=== PATIENT | male | born 1940 | race Caucasian/White ===

== ENCOUNTER 2017-11-30 08:21 | Day surgery (SDC) | payer MEDICARE ==
[2017-11-29 12:37] VITALS: BMI 31.1
[2017-11-30 08:55] LABS: PTT 34.6 SEC (22.9-36.1); Prothrombin Time 13.7 SEC (12.0-14.7)
== END 2017-11-30 10:00 | disposition home or self-care (01) ==
LOC: CT 08:21
PROVIDERS: ATTEND Internal Medicine Nephrology
DX: N18.3 Chronic kidney disease, stage 3 (moderate) (principal); T39.395A Adverse effect of other nonsteroidal anti-inflammatory drugs [NSAID], initial encounter; D63.1 Anemia in chronic kidney disease; N25.81 Secondary hyperparathyroidism of renal origin; G89.29 Other chronic pain; M54.9 Dorsalgia, unspecified; E78.5 Hyperlipidemia, unspecified; G47.33 Obstructive sleep apnea (adult) (pediatric); M19.90 Unspecified osteoarthritis, unspecified site; I10 Essential (primary) hypertension; F32.9 Major depressive disorder, single episode, unspecified; E66.9 Obesity, unspecified; Z68.31 Body mass index [BMI] 31.0-31.9, adult; Z79.82 Long term (current) use of aspirin; Z79.899 Other long term (current) drug therapy; Z88.2 Allergy status to sulfonamides; Z53.9 Procedure and treatment not carried out, unspecified reason
CPT/HCPCS: 36415; 85610; 85730

== ENCOUNTER 2018-01-04 14:41 | Inpatient (IN) | payer MEDICARE ==
[2018-01-04 15:24] LABS: #Basophils 0.1 thou/uL (0.0-0.2); #Eosinphils 0.2 thou/uL (0.0-0.7); #Lymphocytes 1.3 thou/uL (1.20-3.40); #Monocytes 0.9 thou/uL (0.11-0.59); #Neutrophils 4.9 thou/uL (1.40-6.50); %Basophils 0.9 % (0.0-1.0); %Eosinophils 2.8 % (0.0-10.0); %Lymphocytes 18.3 % (21.0-51.0); %Monocytes 11.6 % (0.0-10.0); %Neutrophils 66.4 % (42.0-75.0); Hemoglobin 9.5 g/dL (14.0-18.0); Mean Corpuscular HGB CONC 34.7 g/dL (32.0-36.0); Mean Corpuscular Hemoglobin 32.4 pg (27.0-31.0); Mean Corpuscular Volume 93.4 fL (78.0-98.0); Mean Platelet Volume 7.5 fL (7.4-10.4); Platelet Count 233 thou/uL (130-400); RBC Distribution Width 12.3 % (11.5-14.5); Red Blood Cell (RBC) Count 2.92 mill/uL (4.70-6.10); White Blood Cell (WBC) Count 7.3 thou/uL (4.8-10.8)
[2018-01-04 15:51] LABS: ALT (SGPT) 36 U/L (8-55); AST (SGOT) 30 U/L (5-34); Albumin 4.1 g/dL (3.4-4.8); Alkaline Phosphatase 101 U/L (40-150); Anion Gap 16 mmol/L (10-20); BUN (Urea Nitrogen) 64 mg/dL (8.4-25.7); Bilirubin, Total 0.5 mg/dL (0.2-1.2); Calc. Creatinine Clearance 0 mL/min (70-130); Calcium 10.7 mg/dL (7.8-10.44); Carbon Dioxide 24 mmol/L (23-31); Chloride 97 mmol/L (98-107); Estimated GFR-MDRD 14; Glucose 97 mg/dL (83-110); Potassium 3.1 mmol/L (3.5-5.1); Protein, Total 7.1 g/dL (5.8-8.1); Sodium 134 mmol/L (136-145)
[2018-01-04] MEDS ORDERED: Potassium Chloride 20 MEQ TAB ONE (16:07)
[2018-01-04] MEDS ORDERED: Sodium Chloride 0.9% 1,000 ML IV SCH ×2 (18:23→18:30)
[2018-01-04] MEDS ORDERED: hydrALAZINE 20 MG/ML VIAL SLOW IVP PRN (18:23)
--- NOTE | 2018-01-04 19:02 | PDOC.FPRHP ---
- History of Present Illness Chief Complaint: Acute renal failure History of Present Illness: 77 yo M who presents from Dr Freeman's clinic with acute renal failure. Patient was originally sent to see nephrology about one year ago due to rising creatinine and difficult to control blood pressure. This has been monitored by nephrology since. Over the past year his creatinine has been rising quickly from 1.81 in May to 3.03 on 12/11 to 4.23 today. Pt was sent to ER to be admitted for work up. Pt denies family history of renal disease or past history of known problems. He complains of associated LE edema. He denies dysuria or hematuria. - Allergies/Adverse Reactions Allergies Allergy/AdvReac Type Severity Reaction Status Date / Time Sulfa (Sulfonamide Allergy Verified 01/04/18 19:02 Antibiotics) - Home Medications Medication Instructions Recorded Confirmed Type Aspirin [Aspirin Chewable] 81 mg PO DAILY 11/29/17 01/04/18 History Atorvastatin Calcium 40 mg PO HS 11/29/17 01/04/18 History Calcitriol 0.25 mcg PO BID 11/29/17 01/04/18 History Carvedilol 25 mg PO BID 11/29/17 01/04/18 History Furosemide 40 mg PO BID 11/29/17 01/04/18 History Ranitidine HCl 300 mg PO DAILY 11/29/17 01/04/18 History FLUoxetine HCl [Prozac] 20 mg PO DAILY 01/04/18 01/04/18 History NIFEdipine [Nifedipine ER] 60 mg PO DAILY 01/04/18 01/04/18 History hydrALAZINE [Apresoline] 25 mg PO BID 01/04/18 01/04/18 History traMADol HCl [Ultram] 50 mg PO QID 01/04/18 01/04/18 History - History PMHx: HTN HLD GERD Pancreatitis PSHx: Appendectomy Lumbar fusion L knee arthroplasty tonsillectomy FHx: NA Social: Former smoker 40+ pack year hx, occasional etoh, denies recreational drugs - Review of Systems General: denies: fever/chills, weight/appetite/sleep changes Eyes: denies: vision changes ENT: denies: nasal congestion, rhinorrhea Respiratory: denies: cough, congestion, shortness of breath Cardiovascular: reports: edema (b/l LE). denies: chest pain, palpitation Gastrointestinal: denies: nausea, vomiting, diarrhea Genitourinary: denies: incontinence, dysuria, polyuria Skin: denies: rashes, lesions Musculoskeletal: denies: pain, tenderness Neurological: denies: numbness, syncope Psychological: denies: anxiety, depression - Vital signs BP: 168/71 HR: 59 RR: 20 Tmax: 98.0 Pox: 95% on RA Wt: 90 kg - Physical Exam Constitutional: NAD, awake, alert and oriented HEENT: normocephalic and atraumatic, PERRLA, EOMI Neck: trachea midline Chest: no-tender to palpation Heart: RRR, normal S1/S2, no murmurs/rubs/gallops -Heart: 1+ pitting edema to ankle b/l Lungs: CTAB, no respiratory distress, good air movement Abdomen: soft, non-tender, bowel sounds present, no masses/distention Musculoskeletal: normal structure, normal tone Neurological: no focal deficit, CN II-XII intact Skin: no rash/lesions, good turgor Heme/Lymphatic: no unusual bruising or bleeding, no purpura, no petechia Psychiatric: normal mood and affect, good judgment and insight, intact recent and remote memory FMR H&P: Results - Labs Result Diagrams: 01/04/18 15:14 01/04/18 15:14 Lab results: WBC 7.3 thou/uL (4.8-10.8) 01/04/18 15:14 Hgb 9.5 g/dL (14.0-18.0) L 01/04/18 15:14 Hct 27.3 % (42.0-52.0) L 01/04/18 15:14 MCV 93.4 fL (78.0-98.0) 01/04/18 15:14 Plt Count 233 thou/uL (130-400) 01/04/18 15:14 Neutrophils % 66.4 % (42.0-75.0) 01/04/18 15:14 Sodium 134 mmol/L (136-145) L 01/04/18 15:14 Potassium 3.1 mmol/L (3.5-5.1) L 01/04/18 15:14 Chloride 97 mmol/L (98-107) L 01/04/18 15:14 Carbon Dioxide 24 mmol/L (23-31) 01/04/18 15:14 BUN 64 mg/dL (8.4-25.7) H 01/04/18 15:14 Creatinine 4.23 mg/dL (0.6-1.3) H 01/04/18 15:14 Glucose 97 mg/dL (83-110) 01/04/18 15:14 Calcium 10.7 mg/dL (7.8-10.44) H 01/04/18 15:14 Total Bilirubin 0.5 mg/dL (0.2-1.2) 01/04/18 15:14 AST 30 U/L (5-34) 01/04/18 15:14 ALT 36 U/L (8-55) 01/04/18 15:14 Alkaline Phosphatase 101 U/L (40-150) 01/04/18 15:14 Serum Total Protein 7.1 g/dL (5.8-8.1) 01/04/18 15:14 Albumin 4.1 g/dL (3.4-4.8) 01/04/18 15:14 FMR H&P: A/P - Problem List (1) Acute renal failure Current Visit: Yes Status: Acute Priority: High (2) GERD (gastroesophageal reflux disease) Current Visit: Yes Status: Chronic Code(s): K21.9 - GASTRO-ESOPHAGEAL REFLUX DISEASE WITHOUT ESOPHAGITIS (3) Anxiety Current Visit: Yes Status: Chronic Code(s): F41.9 - ANXIETY DISORDER, UNSPECIFIED (4) Anemia Current Visit: No Status: Chronic Code(s): D64.9 - ANEMIA, UNSPECIFIED Qualifiers: Anemia type: due to chronic kidney disease Chronic kidney disease stage: unspecified stage Qualified Code(s): N18.9 - Chronic kidney disease, unspecified; D63.1 - Anemia in chronic kidney disease (5) Hyperlipemia Current Visit: No Status: Chronic Code(s): E78.5 - HYPERLIPIDEMIA, UNSPECIFIED (6) Hypertension Current Visit: No Status: Chronic Code(s): I10 - ESSENTIAL (PRIMARY) HYPERTENSION Qualifiers: Hypertension type: unspecified Qualified Code(s): I10 - Essential (primary ) hypertension (7) Hypokalemia Current Visit: Yes Status: Acute Code(s): E87.6 - HYPOKALEMIA - Plan Acute renal failure - unclear etiology - Will admit to medicine - @ 75 per nephro recommendations - Consult Dr Freeman who is setting up a renal biopsy - strict BP control, will add PRN hydralazine for pressures over 160 - monitor BMP in am HTN - continue home meds - will order renal us with doppler Hypokalemia - replaced in ER. Recheck in am Normocytic anemia - chronic and asymptomatic. Likely secondary to chronic renal disease Anxiety - continue home meds GERD - continue home meds PPx - lovenox Diet heart healthy Code Full Dispo: Guarded. Monitor patient in inpatient setting until etiology of renal failure can be determined. Length of stay greater than 48 hours FMR H&P: Upper Level - Plan Date/Time: 01/04/18 1856 I, [], have evaluated this patient and agree with findings/plan as outlined by collector of internal revenue resident. Pertinent changes/additions are listed here.
[2018-01-04 19:17] VITALS: BMI 30.1
[2018-01-04] MEDS ORDERED: Potassium Chloride 20 MEQ TAB PO SCH (20:00)
[2018-01-04] MEDS: Sodium Chloride 0.9% 1,000 ML IV SCH (20:27)
[2018-01-04] MEDS: Atorvastatin Calcium 40 MG TAB PO SCH (20:29)
[2018-01-04] MEDS: Calcitriol 0.25 MCG CAP PO SCH (20:29)
[2018-01-04] MEDS: Carvedilol 6.25 MG TAB PO SCH (20:29)
[2018-01-04] MEDS: NIFEdipine XL 30 MG TAB PO SCH (20:30)
[2018-01-04] MEDS: traMADol HCl 50 MG TAB PO SCH (20:30)
[2018-01-04] MEDS ORDERED: Furosemide 20 MG TAB PO SCH (21:00)
--- NOTE | 2018-01-05 00:28 | CON ---
DATE OF CONSULTATION: 01/04/2018 CONSULTING PHYSICIAN: Dr. Flores. REASON FOR CONSULTATION: Acute kidney injury. REASON FOR ADMISSION: Acute kidney. HISTORY OF PRESENT ILLNESS: This is a 77-year-old male with a history of chronic kidney disease, pro teinuria, hypertension, hyperlipidemia, who came to the hospital with worsening creatinine and also w orsening leg edema. Patient has been carefully watched for the last few months and his creatinine meng s been rising; in this morning, he was found to be 4.3 and was sent to the ER. Patient denies any co mplaints. No chest pain, no shortness of breath, no nausea, vomiting, no itching, no skin rash. PAST MEDICAL HISTORY: Positive for hypertension, hyperlipidemia, GERD, pancreatitis. PAST SURGICAL HISTORY: Appendectomy, lumbar fusion, left knee surgery, tonsillectomy. HOME MEDICATIONS: Include carvedilol, furosemide, Prozac, nifedipine, hydralazine, ranitidine, . ALLERGIES: SULFA. SOCIAL HISTORY: Former smoker, 40+ pack history. FAMILY HISTORY: No history of kidney disease. REVIEW OF SYSTEMS: The following complete review of systems was negative, unless otherwise mentioned in the HPI or below: Constitutional: Weight loss or gain, ability to conduct usual activities. Sk in: Rash, itching. Eyes: Double vision, pain. ENT/Mouth: Nose bleeding, neck stiffness, pain, te nderness. Cardiovascular: Palpitations, dyspnea on exertion, orthopnea. Respiratory: Shortness of breath, wheezing, cough, hemoptysis, fever or night sweats. Gastrointestinal: Poor appetite, abdom inal pain, heartburn, nausea, vomiting, constipation, or diarrhea. Genitourinary: Urgency, frequenc y, dysuria, nocturia. Musculoskeletal: Pain, swelling. Neurologic/Psychiatric: Anxiety, depressio n. Allergy/Immunologic: Skin rash, bleeding tendency. PHYSICAL EXAMINATION: GENERAL: This is a well-built male in no apparent distress. VITAL SIGNS: Temperature 98.7, pulse 59, respiratory rate 18, blood pressure 170/66. HEENT: Atraumatic, normocephalic. Oral mucosa is moist. NECK: Supple, no masses. CARDIOVASCULAR: S1, S2 heard. Rate and rhythm regular. RESPIRATORY: Clear. ABDOMEN: Soft. MUSCULOSKELETAL: 1+ edema. DERMATOLOGIC: No skin rash. NEUROLOGIC: Alert, awake. PSYCHIATRIC: Mood and affect normal. LABORATORY AND X-RAY FINDINGS: Hemoglobin is 9.5, potassium is 3.1, BUN is 64, creatinine is 4.23. ASSESSMENT AND PLAN: 1. Acute kidney injury on chronic kidney disease stage 4 with worsening creatinine. Unclear etiolog y. Hematology workup done in the past was negative. C3-C4 was negative, SPEP was negative ANC A as well as GILBERTO were all negative. Hepatitis panel was negative. UPEP was negative and patient is asymptomatic. Plan is to give IV fluids, hold diuretics and hold aspirin for biopsy. Plan is to hav e renal biopsy tomorrow if blood pressure is controlled. 2. Hypertension. I will add Procardia. Stop amlodipine and okay with holding the Lasix for now. T itrate medications. Blood pressure needs to be controlled or biopsy tomorrow. 3. Edema, controlled. We will stop Lasix for now. Gentle hydration will reduce NS at 50 mL per jr r. 4. Secondary hyperparathyroidism, on calcitriol. 5. Anemia, most likely from chronic disease. 6. Proteinuria, unclear etiology. Plan is to do biopsy. No history of any diabetes. 7. We will continue to monitor. 8. Avoid nephrotoxins. Thank you for the consult.
[2018-01-05 04:40] LABS: #Basophils 0.1 thou/uL (0.0-0.2); #Eosinphils 0.3 thou/uL (0.0-0.7); #Lymphocytes 1.2 thou/uL (1.20-3.40); #Monocytes 0.6 thou/uL (0.11-0.59); #Neutrophils 3.9 thou/uL (1.40-6.50); %Basophils 1.1 % (0.0-1.0); %Eosinophils 4.3 % (0.0-10.0); %Lymphocytes 19.4 % (21.0-51.0); %Monocytes 10.1 % (0.0-10.0); %Neutrophils 65.1 % (42.0-75.0); Hemoglobin 8.5 g/dL (14.0-18.0); Mean Corpuscular HGB CONC 34.1 g/dL (32.0-36.0); Mean Corpuscular Hemoglobin 32.1 pg (27.0-31.0); Mean Platelet Volume 7.9 fL (7.4-10.4); Platelet Count 207 thou/uL (130-400); RBC Distribution Width 12.4 % (11.5-14.5); Red Blood Cell (RBC) Count 2.65 mill/uL (4.70-6.10); White Blood Cell (WBC) Count 6.1 thou/uL (4.8-10.8)
[2018-01-05 04:46] LABS: INR-International Normal Ratio 1.1; PTT 35.1 SEC (22.9-36.1); Prothrombin Time 14.3 SEC (12.0-14.7)
[2018-01-05 05:00] LABS: Anion Gap 11 mmol/L (10-20); BUN (Urea Nitrogen) 59 mg/dL (8.4-25.7); Calc. Creatinine Clearance 21 mL/min (70-130); Calcium 9.7 mg/dL (7.8-10.44); Carbon Dioxide 24 mmol/L (23-31); Chloride 104 mmol/L (98-107); Estimated GFR-MDRD 15; Glucose 85 mg/dL (83-110); Magnesium 2.1 mg/dL (1.6-2.6); Potassium 3.2 mmol/L (3.5-5.1); Sodium 136 mmol/L (136-145)
[2018-01-05] MEDS: Carvedilol 6.25 MG TAB PO SCH ×3 (05:29→23:13)
--- NOTE | 2018-01-05 06:49 | PDOC.FM ---
- Subjective Subjective: Pt. states he is doing well and has no complaints this morning. Pt. denies cp, abdominal pain, or SOB. - Objective MAR Reviewed: Yes Vital Signs & Weight: Vital Signs (12 hours) Temp Pulse Resp BP BP Pulse Ox 01/05/18 05:29 168/69 H 01/04/18 20:30 62 168/68 H 01/04/18 20:29 168/68 H 01/04/18 19:52 98.1 F 57 L 20 168/68 H 94 L Weight Weight 89.811 kg I&O: 01/03/18 01/04/18 01/05/18 06:59 06:59 06:59 Intake Total 593 Balance 593 Result Diagrams: 01/05/18 03:45 01/05/18 03:45 Phys Exam - Physical Examination Constitutional: NAD HEENT: moist MMs Neck: no JVD Respiratory: no wheezing, clear to auscultation bilateral Cardiovascular: RRR, no significant murmur Gastrointestinal: soft, non-tender, no distention, positive bowel sounds Neurological: moves all 4 limbs Psychiatric: A&O x 3 Skin: normal turgor Dx/Plan (1) Acute on chronic renal failure Code(s): N17.9 - ACUTE KIDNEY FAILURE, UNSPECIFIED; N18.9 - CHRONIC KIDNEY DISEASE, UNSPECIFIED Status: Acute (2) Hypokalemia Code(s): E87.6 - HYPOKALEMIA Status: Acute (3) Anxiety Code(s): F41.9 - ANXIETY DISORDER, UNSPECIFIED Status: Chronic (4) GERD (gastroesophageal reflux disease) Code(s): K21.9 - GASTRO-ESOPHAGEAL REFLUX DISEASE WITHOUT ESOPHAGITIS Status: Chronic (5) Anemia Code(s): D64.9 - ANEMIA, UNSPECIFIED Status: Chronic Qualifiers: Anemia type: due to chronic kidney disease Chronic kidney disease stage: unspecified stage Qualified Code(s): N18.9 - Chronic kidney disease, unspecified; D63.1 - Anemia in chronic kidney disease (6) Hyperlipemia Code(s): E78.5 - HYPERLIPIDEMIA, UNSPECIFIED Status: Chronic (7) Hypertension Code(s): I10 - ESSENTIAL (PRIMARY) HYPERTENSION Status: Chronic Qualifiers: Hypertension type: unspecified Qualified Code(s): I10 - Essential (primary ) hypertension - Plan Plan: This is a 77 yo male with a PMH of CKD, HTN, anemia, GERD Acute on chronic renal failure, unknown etiology -Pt. is receiving NS 75 and bun/creatinine have improved overnight. Dr. Freeman is on board and has a renal biopsy scheduled for today. He will need tight BP control and pt. currently has PRN hydralazine for pressures >160 SBP. Pt is receiving clonidine now for blood pressure control. HTN -Pt. on nifedipine and clonidine. Pt. has PRN hydralazine. Coreg was held 2/2 heart rate. Hypokalemia -Continuing to replace. Mag normal this AM, checking phos this AM Normocytic anemia -Chronic and asymptomatic, likely 2.2 CKD Anxiety -Continue home meds GERD -Continue home meds Code: Full Prophylaxis: Family: none at bedside Disposition: DC in 2-[address] Freeman recommendations
[2018-01-05] MEDS ORDERED: Amlodipine 10 MG TAB PO SCH (09:00)
[2018-01-05] MEDS: Potassium Chloride 20 MEQ TAB PO SCH ×4 (10:00→17:50)
[2018-01-05] MEDS: Calcitriol 0.25 MCG CAP PO SCH ×2 (10:02→20:12)
[2018-01-05] MEDS: Famotidine 20 MG TAB PO SCH (10:03)
[2018-01-05] MEDS: NIFEdipine XL 30 MG TAB PO SCH (10:03)
[2018-01-05] MEDS: traMADol HCl 50 MG TAB PO SCH ×5 (10:04→23:58)
--- NOTE | 2018-01-05 11:32 | ULT ---
RENAL SONOGRAM RENAL ARTERY DOPPLER WITH SPECTRAL ANALYSIS AND COLOR FLOW EVALUATION: DATE: 01/05/2018. HISTORY: Secondary hypertension. FINDINGS: The kidneys demonstrate mild increased cortical echogenicity. Renal cortical thinning is not appreci ated. There is no hydronephrosis or perinephric fluid collection seen. There is an anechoic structu re seen within the superior pole right kidney measuring 2 cm with a hypoechoic structure in the infer ior pole left kidney also measuring 2 cm. The structure in the inferior pole is not well evaluated. However, MRI examination on 03/16/16 demonstrated multiple increased T2 weighted signal intensity st ructures in the left kidney likely related to multiple cysts involving the mid portion inferior pole left kidney. There is a smaller exophytic hypoechoic lesion mid portion left kidney measuring approx imately 1 cm. This may also represent a small cyst. The urinary bladder demonstrates a normal sonographic appearance. DOPPLER EVALUATION OF BILATERAL RENAL ARTERIES AND SPECTRAL ANALYSIS AND COLOR FLOW EVALUATION: The peak systolic velocity in the right renal artery is 40.3 cm/s with peak systolic velocity of the left renal artery measuring 32.1 cm/s, and peak systolic velocity in the abdominal aorta is 110.4 cm/ s. The right renal artery to aorta ratio is 0.37 and on the left the ratio is 0.29. Ratio below 3 i s within normal limits. Resistive indices in the right arcuate arteries range from 0.42 to 0.55 and on the left the resistive indices range from 0.53 to 0.7. A resistive index less than 0.7 is within normal limits. IMPRESSION: 1. Small hypoechoic lesions within the left kidney likely related to small cysts, but are difficult to definitely characterize given difficulty in imaging. Prior MRI examination demonstrated T2 hyperi ntense lesions suggesting cysts within the mid portion and inferior pole left kidney. 2. No evidence of hydronephrosis. 3. Mild increased echogenicity of each kidney which is nonspecific and can be seen with chronic medi aaron renal disease. No renal cortical thinning is appreciated. 4. Normal renal artery to aorta ratios bilaterally as well as normal resistive indices bilaterally. POS: JOS
[2018-01-05] MEDS ORDERED: cloNIDine 0.1 MG TAB PO SCH (12:15)
[2018-01-05] MEDS ORDERED: NIFEdipine XL 30 MG TAB PO SCH (13:30)
[2018-01-05] MEDS ORDERED: hydrALAZINE 25 MG TAB PO SCH (17:15)
--- NOTE | 2018-01-05 19:03 | PRG ---
DATE OF SERVICE: 01/05/2018 NEPHROLOGY PROGRESS NOTE SUBJECTIVE: Patient was seen and examined at bedside and overnight events noted. Patient denies any shortness of breath or chest pain or palpitation. No history of nausea or vomiting or diarrhea or f ever or chills or cramps. OBJECTIVE: GENERAL: This is a well-built male in no apparent distress. VITAL SIGNS: Temperature 97.5, pulse 45, respiratory rate 18, blood pressure 171/75. HEENT: Atraumatic, normocephalic. Oral mucosa is moist. NECK: Supple. CARDIOVASCULAR: S1, S2 heard. Rate and rhythm regular. RESPIRATORY: Clear to auscultation. GASTROINTESTINAL: Abdomen is soft. MUSCULOSKELETAL: No tenderness. No edema. DERMATOLOGIC: No skin rash. NEUROLOGIC: Alert and awake and oriented x3. No focal neurologic deficits. Moving all the extremiti es. PSYCHIATRIC: Mood and affect normal. LABORATORY DATA: Potassium is 3.2, BUN 59, creatinine 3.8. ASSESSMENT AND PLAN: 1. Acute kidney injury on chronic kidney disease stage 4. Renal function is stable after IV hydrati on. We will stop IV hydration given the hypertension. 2. Hypertension. We will continue to up titrate medication. 3. Bradycardia. Limit the increase in dose of Coreg, also be cautious with the clonidine use. We w ill increase Procardia XL to 60 mg p.o. daily and we will add hydralazine 25 mg p.o. b.i.d. 4. Edema, controlled. 5. Secondary hyperparathyroidism, on calcitriol. 6. Anemia of chronic disease. 7. Proteinuria. 8. Hypokalemia. We will add seems like it was negative in the past. We will check it again. 9. We will follow. Immunological workup negative so far. Plan to do biopsy tomorrow to evaluate pr oteinuria and chronic kidney disease.
[2018-01-05 19:56] LABS: Creatinine, Urine 64.05 mg/dL (63-166)
[2018-01-05] MEDS: Sodium Chloride 0.9% 1,000 ML IV SCH (20:00)
[2018-01-05] MEDS: cloNIDine 0.1 MG TAB PO SCH (20:12)
[2018-01-05] MEDS: Atorvastatin Calcium 40 MG TAB PO SCH (20:12)
[2018-01-05] MEDS: NIFEdipine XL 60 MG TAB PO SCH (20:16)
[2018-01-05] MEDS: hydrALAZINE 25 MG TAB PO SCH (20:19)
[2018-01-05] MEDS: Acetaminophen 325 MG TAB PO PRN (23:58)
[2018-01-06] MEDS: traMADol HCl 50 MG TAB PO SCH ×3 (05:58→19:38)
[2018-01-06] MEDS: Acetaminophen 325 MG TAB PO PRN ×2 (05:58→19:39)
[2018-01-06] MEDS: Carvedilol 6.25 MG TAB PO SCH ×2 (05:58→20:49)
[2018-01-06 06:49] LABS: Anion Gap 14 mmol/L (10-20); BUN (Urea Nitrogen) 55 mg/dL (8.4-25.7); Calc. Creatinine Clearance 23 mL/min (70-130); Calcium 9.6 mg/dL (7.8-10.44); Carbon Dioxide 22 mmol/L (23-31); Chloride 106 mmol/L (98-107); Estimated GFR-MDRD 17; Glucose 77 mg/dL (83-110); Potassium 4.5 mmol/L (3.5-5.1); Sodium 137 mmol/L (136-145)
[2018-01-06] MEDS: NIFEdipine XL 60 MG TAB PO SCH ×2 (08:00→20:45)
[2018-01-06] MEDS: Famotidine 20 MG TAB PO SCH (08:00)
[2018-01-06] MEDS: cloNIDine 0.1 MG TAB PO SCH (08:01)
[2018-01-06] MEDS ORDERED: NIFEdipine XL 60 MG TAB PO SCH (09:00)
--- NOTE | 2018-01-06 11:53 | PRG ---
DATE OF SERVICE: 01/06/2018 This is an addendum to the note of Dr. Nelson Zhao. Mr. Carroll is resting quietly in bed in no distress. He is awaiting his renal biopsy which hopefully will occur later this morning. Afterwards he will be likely ready for discharge later today or [facility] and follow up with Nephrology Service.
[2018-01-06] MEDS: Calcitriol 0.25 MCG CAP PO SCH ×2 (12:34→20:45)
[2018-01-06] MEDS: Potassium Chloride 20 MEQ TAB PO SCH (12:38)
[2018-01-06] MEDS: hydrALAZINE 25 MG TAB PO SCH ×3 (12:39→20:45)
[2018-01-06] MEDS ORDERED: Fentanyl 100 MCG/2 ML VIAL ONE (13:21)
[2018-01-06] MEDS ORDERED: Midazolam HCl 2 mg/2 ml Vial ONE (13:40)
--- NOTE | 2018-01-06 13:56 | PDOC.FM ---
- Subjective Subjective: Pt. has no complaints this morning. He states he has been resting well. - Objective MAR Reviewed: Yes Vital Signs & Weight: Vital Signs (12 hours) Temp Pulse Resp BP BP BP Pulse Ox 01/06/18 12:39 54 L 01/06/18 11:18 54 L 143/62 H 01/06/18 08:01 133/61 01/06/18 08:00 46 L 133/61 95 01/06/18 07:27 97.8 F 46 L 18 133/61 95 01/06/18 05:58 149/62 H 01/06/18 04:00 98 F 59 L 18 149/62 H 94 L Weight Weight 89.811 kg I&O: 01/05/18 01/06/18 01/07/18 06:59 06:59 06:59 Intake Total 593 2620 Balance 593 2620 Result Diagrams: 01/05/18 03:45 01/06/18 04:03 Phys Exam - Physical Examination Constitutional: NAD HEENT: moist MMs Neck: no nodes, no JVD Respiratory: no wheezing, clear to auscultation bilateral Cardiovascular: RRR, no significant murmur Gastrointestinal: soft, non-tender, no distention, positive bowel sounds Musculoskeletal: no edema, pulses present Psychiatric: A&O x 3 Skin: normal turgor Dx/Plan (1) Acute on chronic renal failure Code(s): N17.9 - ACUTE KIDNEY FAILURE, UNSPECIFIED; N18.9 - CHRONIC KIDNEY DISEASE, UNSPECIFIED Status: Acute (2) Hypokalemia Code(s): E87.6 - HYPOKALEMIA Status: Acute (3) Anxiety Code(s): F41.9 - ANXIETY DISORDER, UNSPECIFIED Status: Chronic (4) GERD (gastroesophageal reflux disease) Code(s): K21.9 - GASTRO-ESOPHAGEAL REFLUX DISEASE WITHOUT ESOPHAGITIS Status: Chronic (5) Anemia Code(s): D64.9 - ANEMIA, UNSPECIFIED Status: Chronic Qualifiers: Anemia type: due to chronic kidney disease Chronic kidney disease stage: unspecified stage Qualified Code(s): N18.9 - Chronic kidney disease, unspecified; D63.1 - Anemia in chronic kidney disease (6) Hyperlipemia Code(s): E78.5 - HYPERLIPIDEMIA, UNSPECIFIED Status: Chronic (7) Hypertension Code(s): I10 - ESSENTIAL (PRIMARY) HYPERTENSION Status: Chronic Qualifiers: Hypertension type: unspecified Qualified Code(s): I10 - Essential (primary ) hypertension - Plan Plan: This is a 77 yo male with a PMH of CKD, HTN, anemia, GERD Acute on chronic renal failure, unknown etiology -Pt. is receiving NS 75 and bun/creatinine have improved overnight. Dr. Freeman is on board and has a renal biopsy scheduled for today. Blood pressure is controlled. HTN -Pt. on nifedipine and clonidine. Pt. has PRN hydralazine. Coreg was held 2/2 heart rate. Hypokalemia -Resolved. We are discontinuing today Normocytic anemia -Chronic and asymptomatic, likely 2.2 CKD Anxiety -Continue home meds GERD -Continue home meds Code: Full Prophylaxis: Family: none at bedside Disposition: DC in 2-[address] Freeman recommendations
--- NOTE | 2018-01-06 16:11 | CT ---
CT GUIDED RANDOM RENAL BIOPSY: Date: 01/06/18 HISTORY: Renal failure. MEDICATION: 1 mg Versed, IV. FINDINGS: After explaining the procedure and answering all questions, limited CT imaging was performed. Sterile technique, buffered local anesthesia, conscious sedation, CT guidance, and a left posterior approach were used to carefully advance the tip of a 17 gauge trocar needle into the posterior cortex of the left kidney at the avascular zone. Position was confirmed with CT. A total of three core 18 gauge biopsy specimens were obtained and sub mitted to pathology. Specimen adequacy confirmed by Dr. Palmer. Needle was removed. No evidence of c omplication on delayed images. The patient tolerated the procedure well and was returned in unchanged condition. IMPRESSION: Technically successful CT guided random renal biopsy. Pathology is pending. POS: JOS
--- NOTE | 2018-01-06 17:26 | PRG ---
DATE OF SERVICE: 01/06/2018 SUBJECTIVE: Patient was seen and examined at bedside and overnight events noted. Patient denies any shortness of breath or chest pain or palpitation. No history of nausea or vomitin g or diarrhea or fever or chills or cramps. OBJECTIVE: GENERAL: This is a well-built male, in no apparent distress. VITAL SIGNS: Temperature 98.3, pulse 91, respiratory rate , blood pressure 144/73. HEENT: Atraumatic, normocephalic. Oral mucosa is moist. NECK: Supple. CARDIOVASCULAR: S1 and S2 heard. Rate and rhythm regular. RESPIRATORY: Clear to auscultation. GASTROINTESTINAL: Abdomen is soft. MUSCULOSKELETAL: No tenderness. No edema. DERMATOLOGIC: No skin rash. NEUROLOGIC: Alert and awake and oriented x3. No focal neurologic deficits. Moving all the extremit ies. PSYCHIATRIC: Mood and affect normal. LABORATORY DATA: Potassium is 4.5, BUN 55, creatinine 3.5. ASSESSMENT AND PLAN: 1. Acute kidney injury on chronic kidney stage IV. Renal function is stable. Avoid nephrotoxins. Renal biopsy done. 2. Proteinuria with acute kidney injury, biopsy done today and results pending. 3. Hypertension, much better. Continue current medication continue calcitonin. 4. Anemia, most likely from chronic disease. Check iron studies and I will start epo as needed. We will follow. 5. Hypokalemia, replace cautiously and follow.
[2018-01-06] MEDS: Atorvastatin Calcium 40 MG TAB PO SCH (20:46)
[2018-01-07] MEDS: traMADol HCl 50 MG TAB PO SCH ×4 (01:12→17:52)
--- NOTE | 2018-01-07 05:25 | PDOC.FM ---
- Subjective Subjective: Pt reports feeling well this AM, no complaints at this time. No tenderness or pain at site of biopsy. no fever/chills, no cp/palpitations, no sob/cough, no n/v - Objective MAR Reviewed: Yes Vital Signs & Weight: Vital Signs (12 hours) Temp Pulse Resp BP BP Pulse Ox 01/06/18 20:49 156/65 H 01/06/18 20:45 52 L 156/65 H 01/06/18 20:43 97.6 F 52 L 16 156/65 H 96 Weight Weight 89.811 kg I&O: 01/05/18 01/06/18 01/07/18 06:59 06:59 06:59 Intake Total 593 2620 Balance 593 2620 Result Diagrams: 01/07/18 05:01 01/07/18 05:01 Phys Exam - Physical Examination Constitutional: NAD HEENT: moist MMs, sclera anicteric Neck: no nodes, supple Respiratory: no wheezing, clear to auscultation bilateral Cardiovascular: RRR, no significant murmur Gastrointestinal: soft, non-tender Musculoskeletal: no edema, pulses present Neurological: normal sensation, moves all 4 limbs Psychiatric: normal affect, A&O x 3 Skin: no rash, normal turgor Dx/Plan (1) Acute on chronic renal failure Code(s): N17.9 - ACUTE KIDNEY FAILURE, UNSPECIFIED; N18.9 - CHRONIC KIDNEY DISEASE, UNSPECIFIED Status: Acute (2) Anemia Code(s): D64.9 - ANEMIA, UNSPECIFIED Status: Chronic Qualifiers: Anemia type: due to chronic kidney disease Chronic kidney disease stage: unspecified stage Qualified Code(s): N18.9 - Chronic kidney disease, unspecified; D63.1 - Anemia in chronic kidney disease (3) Hypertension Code(s): I10 - ESSENTIAL (PRIMARY) HYPERTENSION Status: Chronic Qualifiers: Hypertension type: unspecified Qualified Code(s): I10 - Essential (primary ) hypertension - Plan Plan: This is a 77 yo male with a PMH of CKD, HTN, anemia, GERD Acute on chronic renal failure, unknown etiology A- Pt bun/creatinine stable. Dr. Freeman is on board and has a renal biopsy performed yesterday, pending path results. P- Await pathology, Lydia plans to prescribe steroids pending results -recs per Lydia. HTN A- Pt hypertensive today, discussed mgmgt with Dr. Freeman P- decrease coreg to 12.5 BID - DC clonidine - increase hydralazine 50mg PO BID - monitor BP Hypokalemia -Resolved. Normocytic anemia -Chronic and asymptomatic, likely 2.2 CKD Anxiety -Continue home meds GERD -Continue home meds Code: Full Disposition: DC in 1-[address] Freeman recommendations
[2018-01-07] MEDS: Acetaminophen 325 MG TAB PO PRN (06:10)
[2018-01-07 06:19] LABS: #Basophils 0.1 thou/uL (0.0-0.2); #Eosinphils 0.2 thou/uL (0.0-0.7); #Lymphocytes 0.8 thou/uL (1.20-3.40); #Monocytes 0.8 thou/uL (0.11-0.59); #Neutrophils 6.3 thou/uL (1.40-6.50); %Basophils 0.9 % (0.0-1.0); %Eosinophils 2.9 % (0.0-10.0); %Lymphocytes 10.2 % (21.0-51.0); %Monocytes 9.3 % (0.0-10.0); %Neutrophils 76.7 % (42.0-75.0); Hemoglobin 8.9 g/dL (14.0-18.0); Mean Corpuscular HGB CONC 33.8 g/dL (32.0-36.0); Mean Corpuscular Hemoglobin 32.3 pg (27.0-31.0); Mean Corpuscular Volume 95.6 fL (78.0-98.0); Mean Platelet Volume 8.6 fL (7.4-10.4); Platelet Count 192 thou/uL (130-400); RBC Distribution Width 12.7 % (11.5-14.5); Red Blood Cell (RBC) Count 2.75 mill/uL (4.70-6.10); White Blood Cell (WBC) Count 8.3 thou/uL (4.8-10.8)
[2018-01-07 06:36] LABS: Anion Gap 12 mmol/L (10-20); BUN (Urea Nitrogen) 54 mg/dL (8.4-25.7); Calc. Creatinine Clearance 22 mL/min (70-130); Calcium 9.7 mg/dL (7.8-10.44); Carbon Dioxide 22 mmol/L (23-31); Chloride 105 mmol/L (98-107); Estimated GFR-MDRD 16; Glucose 88 mg/dL (83-110); Potassium 4.5 mmol/L (3.5-5.1); Sodium 134 mmol/L (136-145)
[2018-01-07 06:38] LABS: Iron 32 ug/dL (65-175); Iron Binding Capacity, Total 209 mcg/dL (261-462)
[2018-01-07] MEDS: NIFEdipine XL 60 MG TAB PO SCH ×2 (08:00→21:00)
[2018-01-07] MEDS: Calcitriol 0.25 MCG CAP PO SCH ×2 (08:00→20:58)
[2018-01-07] MEDS: hydrALAZINE 25 MG TAB PO SCH ×2 (08:03→20:59)
[2018-01-07] MEDS: Carvedilol 6.25 MG TAB PO SCH ×3 (08:04→21:40)
[2018-01-07] MEDS: Famotidine 20 MG TAB PO SCH (08:04)
[2018-01-07] MEDS ORDERED: cloNIDine 0.1 MG TAB PO SCH (09:00)
[2018-01-07] MEDS ORDERED: Epoetin (ESRD) 20,000 UNITS/ML SC SCH (10:00)
--- NOTE | 2018-01-07 10:23 | PRG ---
DATE OF SERVICE: 01/07/2018. SUBJECTIVE: Patient was seen and examined at bedside and overnight events noted. Patient denies any shortness of breath or chest pain or palpitation. No history of nausea or vomiting or diarrhea or f ever or chills or cramps. OBJECTIVE: GENERAL: This is a well-built male in no apparent distress. VITAL SIGNS: Temperature 98.7, pulse 55, respiratory rate 18, blood pressure 166/84. HEENT: Atraumatic, normocephalic. Oral mucosa is moist. NECK: Supple. CARDIOVASCULAR: S1, S2 heard. Rate and rhythm regular. RESPIRATORY: Clear to auscultation. GASTROINTESTINAL: Abdomen is soft. MUSCULOSKELETAL: No tenderness, no edema. DERMATOLOGIC: No skin rash. NEUROLOGIC: Alert and awake and oriented x3. No focal neurologic deficits. Moving all the extremit ies. PSYCHIATRIC: Mood and affect normal. LABORATORY DATA: Potassium 4.5, BUN is 54, creatinine 3.6. ASSESSMENT AND PLAN: 1. Acute kidney injury on chronic kidney stage 4, stable GFR. 2. Edema, controlled. 3. Proteinuria. Awaiting biopsy results most likely available today. 4. Hypokalemia. 5. Awaiting biopsy results for further decision on management.
[2018-01-07] MEDS: Atorvastatin Calcium 40 MG TAB PO SCH (20:59)
[2018-01-08] MEDS: traMADol HCl 50 MG TAB PO SCH ×3 (01:35→12:46)
--- NOTE | 2018-01-08 06:43 | PDOC.FM ---
- Subjective Subjective: Pt feels well this AM and has no complaints whatsoever. No tenderness at site of biopsy. Wants to get home to work. - Objective MAR Reviewed: Yes Vital Signs & Weight: Vital Signs (12 hours) Temp Pulse Resp BP BP Pulse Ox 01/08/18 05:00 98.2 F 60 18 159/67 H 93 L 01/07/18 21:40 165/67 H 01/07/18 21:00 98 F 64 18 151/77 H 165/67 H 93 L 01/07/18 20:59 51 L 151/77 H Weight Weight 89.811 kg I&O: 01/06/18 01/07/18 01/08/18 06:59 06:59 06:59 Intake Total 2620 800 500 Output Total 200 1325 Balance 2620 600 -825 Result Diagrams: 01/07/18 05:01 01/07/18 05:01 Phys Exam - Physical Examination Constitutional: NAD HEENT: moist MMs, sclera anicteric Neck: no nodes, no JVD Respiratory: no wheezing, clear to auscultation bilateral Cardiovascular: RRR, no significant murmur Gastrointestinal: soft, non-tender Musculoskeletal: no edema, pulses present Neurological: non-focal, normal sensation Lymphatic: no nodes Psychiatric: normal affect, A&O x 3 Skin: no rash, normal turgor Dx/Plan (1) Acute on chronic renal failure Code(s): N17.9 - ACUTE KIDNEY FAILURE, UNSPECIFIED; N18.9 - CHRONIC KIDNEY DISEASE, UNSPECIFIED Status: Acute (2) Anemia Code(s): D64.9 - ANEMIA, UNSPECIFIED Status: Chronic Qualifiers: Anemia type: due to chronic kidney disease Chronic kidney disease stage: unspecified stage Qualified Code(s): N18.9 - Chronic kidney disease, unspecified; D63.1 - Anemia in chronic kidney disease (3) Hypertension Code(s): I10 - ESSENTIAL (PRIMARY) HYPERTENSION Status: Chronic Qualifiers: Hypertension type: unspecified Qualified Code(s): I10 - Essential (primary ) hypertension - Plan Plan: This is a 77 yo male with a PMH of CKD, HTN, anemia, GERD Acute on chronic renal failure, unknown etiology A- Pt bun/creatinine stable. Dr. Freeman is on board and has a renal biopsy performed 01/06, pending path results. P- Await pathology, Lydia plans to prescribe steroids pending results -recs per Lydia. -possible dc today if po steroids possible HTN A- Pt remains hypertensive today, discussed mgmgt with Dr. Freeman yesterday and adjusted meds P- continue coreg to 12.5 BID - continue nifedipine 60mg BID - continue hydralazine 50mg PO BID, will change to TID if pt remains hypertensive - monitor BP Hypokalemia -Resolved. Normocytic anemia -Chronic and asymptomatic, likely 2.2 CKD Anxiety -Continue home meds GERD -Continue home meds Code: Full Disposition: DC in 0-[address] Freeman recommendations
[2018-01-08] MEDS: Carvedilol 6.25 MG TAB PO SCH (08:31)
[2018-01-08] MEDS: hydrALAZINE 25 MG TAB PO SCH (08:31)
[2018-01-08] MEDS: NIFEdipine XL 60 MG TAB PO SCH (08:31)
[2018-01-08] MEDS: Famotidine 20 MG TAB PO SCH (08:32)
[2018-01-08] MEDS: Calcitriol 0.25 MCG CAP PO SCH (08:32)
[2018-01-08 11:56] VITALS: TEMP 97.7
[2018-01-08 12:48] VITALS: BP 176/71
--- NOTE | 2018-01-08 13:46 | PRG ---
DATE OF SERVICE: 01/08/2018 NEPHROLOGY PROGRESS NOTE SUBJECTIVE: Patient was seen and examined at bedside and overnight events noted. Patient denies any shortness of breath or chest pain or palpitation. No history of nausea or vomiting or diarrhea or f ever or chills or cramps. OBJECTIVE: GENERAL: This is a well-built male, in no apparent distress. VITAL SIGNS: Temperature 97.7, pulse 54, respiratory rate 18, blood pressure 172/69. HEENT: Atraumatic, normocephalic. Oral mucosa is moist. NECK: Supple. CARDIOVASCULAR: S1, S2 heard. Rate and rhythm regular. RESPIRATORY: Clear to auscultation. GASTROINTESTINAL: Abdomen is soft. MUSCULOSKELETAL: No tenderness. No edema. DERMATOLOGIC: No skin rash. NEUROLOGIC: Alert and awake and oriented x3. No focal neurologic deficits. Moving all the extremit ies. PSYCHIATRIC: Mood and affect normal. LABORATORY DATA: Not done today. ASSESSMENT AND PLAN: 1. Acute kidney injury on chronic kidney disease stage 4, stable. 2. Edema, controlled. 3. Proteinuria. Awaiting biopsy results, not available yesterday. The patient wants to go home. O feng to discharge home. 4. Hypertension. Increase hydralazine. 5. Hypokalemia, stable. 6. Up titrate blood pressure medicines. We will increase hydralazine. Monitor closely as outpatien t. Biopsy results will be available only tomorrow and further decision will be made based on the bio psy results and the patient wants to go home and okay to send home .
[2018-01-08] MEDS ORDERED: hydrALAZINE 25 MG TAB PO SCH (15:00)
--- NOTE | 2018-01-10 00:58 | DIS-2 ---
DATE OF ADMISSION: 01/04/2018 DATE OF DISCHARGE: 01/08/2018 RESIDENT: Silas Norton. ADMITTING ATTENDING: Delon Bullock M.D. DISCHARGE ATTENDING: Dr. Davy Aguilar CONSULTATIONS: Urology, Dr. Freeman. PROCEDURES: 1. On 01/05/2018, renal ultrasound. Impression: Small hypoechoic lesions within the left kidney li yenifer related to small cysts, but are difficult to definitely characterize given difficulty imaging, P rior MRI examination demonstrated T2 hyperintense lesions suggesting cysts within the mid portion and the inferior pole of the left kidney. No evidence of hydronephrosis. Mild increased echogenicity o f each kidney, which is nonspecific and can be seen with chronic medical renal disease, no renal katy ical thinning is appreciated. Normal renal artery to aorta ratio is bilaterally as well as normal re sistive indices bilaterally. 2. Biopsy CT on 01/06/2018. Impression, technically successful CT-guided random renal diet biopsy. Pathology is pending. PRIMARY DIAGNOSIS: Acute on chronic renal failure. SECONDARY DIAGNOSIS: Hypertension. DISCHARGE MEDICATIONS: 1. Ranitidine 300 mg p.o. daily. 2. Carvedilol 12.5 mg p.o. b.i.d. 3. Atorvastatin 40 mg p.o. at bedtime. 4. Calcitriol 0.25 mcg p.o. b.i.d. 5. Fluoxetine 20 mg p.o. at bedtime. 6. Nifedipine 60 mg p.o. daily. 7. Aspirin 81 mg p.o. daily. 8. Hydralazine 100 mg p.o. t.i.d. DISCONTINUED MEDICATIONS: 1. Furosemide 20 mg p.o. b.i.d. 2. Hydralazine 25 mg p.o. b.i.d. 3. Tramadol 50 mg p.o. q.i.d. HISTORY OF PRESENT ILLNESS AND HOSPITAL COURSE: This is a 77-year-old male with medical history of r ecently diagnosed chronic kidney disease within the year. Patient has been followed by Dr. Freeman w [facility] Nephrology. Patient was admitted on recommendations of Dr. Freeman for further workup of his chr onic kidney disease as patient has had a remarkable worsening of kidney function in the last year wit h creatinine increasing from about 2 to around 5 from May until now. Patient was admitted and p lanned for renal biopsy which was performed on 01/07. Originally, patient had plans to stay in [facility] as pathology results were pending for the possibility of IV corticosteroid treatment pending path results. However, patient expressed his desire for discharge earlier to get back to work and per Wy leandro's recommendations, patient was deemed safe and possible to have outpatient followup with p.o. s teroids if necessary. Hospitalization was further complicated by hypertension as home medications we re adjusted and patient was sent home on hydralazine 100 mg p.o. b.i.d., nifedipine and Coreg per Delmis rosenberg's recommendations and as listed above. Hospital course was further complicated by hypokalemia, which resolved with replenishment. DISPOSITION: Stable. DISCHARGE INSTRUCTIONS: 1. Discharged home. 2. Diet: Renal diet. 3. Activity: As tolerated. 4. Follow up Dr. Davy Aguilar in [address] Tae Freeman in 7 days.
[2018-01-10 13:16] LABS: Renin Activity 4.594 ng/mL/hr (0.167-5.380)
== END 2018-01-08 15:07 | disposition home or self-care (01) | DRG 684 ==
LOC: ERS 14:41 → T4-B 16:31
PROVIDERS: ADMIT Family Medicine; ATTEND Family Medicine
PROC: 0TB13ZX Excision of Left Kidney, Percutaneous Approach, Diagnostic (ICD-10-PCS; principal; 2018-01-06)
DX: N17.9 Acute kidney failure, unspecified (principal); I10 Essential (primary) hypertension; N18.4 Chronic kidney disease, stage 4 (severe); R80.9 Proteinuria, unspecified; E87.6 Hypokalemia; R00.1 Bradycardia, unspecified; E21.3 Hyperparathyroidism, unspecified; D63.1 Anemia in chronic kidney disease; E78.5 Hyperlipidemia, unspecified; R60.0 Localized edema; K21.9 Gastro-esophageal reflux disease without esophagitis; Z79.899 Other long term (current) drug therapy; Z88.2 Allergy status to sulfonamides; Z87.891 Personal history of nicotine dependence; F32.9 Major depressive disorder, single episode, unspecified; F41.9 Anxiety disorder, unspecified
CPT/HCPCS: 36415; 50200; 76700; 76770; 77012; 80048; 80053; 82088; 82570; 82728; 83540; 83550; 83735; 84100; 84156; 84244; 85014; 85018; 85025; 85610; 85730; 88329; 96360; A4216; J0360; J2250; J3010; Q4081

== ENCOUNTER 2018-01-25 08:59 | Day surgery (SDC) | payer MEDICARE ==
[2018-01-24 14:44] VITALS: BMI 28.4
[2018-01-25 11:18] VITALS: BP 155/63; TEMP 98.2
--- NOTE | 2018-01-25 15:23 | CT ---
CT GUIDED RENAL BIOPSY: HISTORY: Proteinuria. Renal failure. FINDINGS: Informed consent was obtained from the patient. The right kidney was localized using CT guidance. T he overlying skin was prepped and draped in the usual sterile manner. A 1% Lidocaine solution was us ed to anesthetize the overlying soft tissues. A small dermatotomy was made. An outer 17-gauge needl e was placed using CT guidance into the right kidney. Three core biopsies obtained. Specimen was gi winston to pathology for diagnosis. Initial evaluation suggested enough glomeruli to evaluate for pathol ogic evaluation. Post biopsy a gelfoam pledget was introduced into the biopsy tract. Hemostasis achieved. Post biops y CT demonstrates no evidence of significant perirenal hematoma. IMPRESSION: Successful CT-guided right renal biopsy. POS: [facility]
== END 2018-01-25 12:50 | disposition home or self-care (01) ==
LOC: CT 08:59
PROVIDERS: ATTEND Internal Medicine Nephrology
PROC: 0TB03ZX Excision of Right Kidney, Percutaneous Approach, Diagnostic (ICD-10-PCS; principal; 2018-01-25)
DX: N17.9 Acute kidney failure, unspecified (principal); I12.9 Hypertensive chronic kidney disease with stage 1 through stage 4 chronic kidney disease, or unspecified chronic kidney disease; N18.4 Chronic kidney disease, stage 4 (severe)
CPT/HCPCS: 50200; 77012; 88329

== ENCOUNTER 2018-02-27 14:42 | Outpatient (CLI) | payer MEDICARE ==
--- NOTE | 2018-02-27 16:15 | RAD ---
TWO VIEW CHEST: 02/27/18 INDICATION: Chest pain. FINDINGS: There is mild enlargement of the cardiac silhouette. Blunting of each costophrenic sulcus is present, mild in degree. No acute osseous abnormality. IMPRESSION: Prominent cardiac silhouette. Slight blunting of the costophrenic sulci which may relate to small volume pleural fluid versus pleur al thickening. POS: [facility]
== END 2018-02-27 14:43 | disposition home or self-care (01) ==
LOC: RAD 14:42
PROVIDERS: ATTEND Internal Medicine Nephrology
DX: I12.0 Hypertensive chronic kidney disease with stage 5 chronic kidney disease or end stage renal disease (principal); N18.5 Chronic kidney disease, stage 5
CPT/HCPCS: 36415; 71046; 80048; 86706; 86803; 87340; 87517

== ENCOUNTER 2018-03-03 10:09 | Outpatient (CLI) | payer MEDICARE ==
[2018-03-03 11:38] LABS: #Basophils 0.1 thou/uL (0.0-0.2); #Eosinphils 0.2 thou/uL (0.0-0.7); #Lymphocytes 0.9 thou/uL (1.20-3.40); #Monocytes 0.8 thou/uL (0.11-0.59); #Neutrophils 5.9 thou/uL (1.40-6.50); %Basophils 0.9 % (0.0-1.0); %Monocytes 10.4 % (0.0-10.0); %Neutrophils 74.7 % (42.0-75.0); Hemoglobin 7.9 g/dL (14.0-18.0); Mean Corpuscular HGB CONC 35.1 g/dL (32.0-36.0); Mean Corpuscular Hemoglobin 33.1 pg (27.0-31.0); Mean Corpuscular Volume 94.2 fL (78.0-98.0); Mean Platelet Volume 7.7 fL (7.4-10.4); Platelet Count 210 thou/uL (130-400); RBC Distribution Width 13.4 % (11.5-14.5); Red Blood Cell (RBC) Count 2.38 mill/uL (4.70-6.10); White Blood Cell (WBC) Count 7.9 thou/uL (4.8-10.8)
[2018-03-03 12:09] LABS: Chloride 103 mmol/L (98-107); Potassium 3.5 mmol/L (3.5-5.1); Sodium 136 mmol/L (136-145)
[2018-03-03 12:10] LABS: Glucose 106 mg/dL (83-110)
[2018-03-03 12:11] LABS: Anion Gap 13 mmol/L (10-20); Carbon Dioxide 24 mmol/L (23-31)
[2018-03-03 12:14] LABS: BUN (Urea Nitrogen) 61 mg/dL (8.4-25.7)
[2018-03-03 13:50] LABS: Calc. Creatinine Clearance 0 mL/min (70-130); Estimated GFR-MDRD 12
--- NOTE | 2018-03-03 22:44 | EKG ---
Test Reason : Blood Pressure : / mmHG Vent. Rate : 057 BPM Atrial Rate : 057 BPM P-R Int : 140 ms QRS Dur : 098 ms QT Int : 458 ms P-R-T Axes : 038 054 057 degrees QTc Int : 445 ms Sinus bradycardia Minimal voltage criteria for LVH, may be normal variant Borderline ECG When compared with ECG of 13-JUL-2010 07:56, QT has lengthened Confirmed by MIGUELINA FROST, . SPablo (4) on 03/03/2018 10:44:40 PM Referred By: ROSAMARIA Confirmed By:DR. Ronald MCINTYRE MD
== END 2018-03-03 10:10 | disposition home or self-care (01) ==
LOC: LABBT 10:09
PROVIDERS: ATTEND Specialist
DX: Z01.818 Encounter for other preprocedural examination (principal); N18.9 Chronic kidney disease, unspecified
CPT/HCPCS: 80048; 85025; 93005; 93010

== ENCOUNTER 2018-03-08 06:34 | Day surgery (SDC) | payer MEDICARE ==
[2018-03-03 10:36] VITALS: BMI 28.8
[2018-03-08] MEDS ORDERED: CEFAZOLIN 2 GM/50 ML BAG ONE (08:05)
--- NOTE | 2018-03-08 08:36 | HP ---
HISTORY OF PRESENT ILLNESS: Ramiro Carroll is a 77-year-old male patient followed by Dr. Bass and Dr. Freeman. He has been referred for peritoneal dialysis catheter in the left arm and plan is to place, under general anesthesia, laparoscopic peritoneal dialysis catheter and implant a left arm fistula. He has not yet started dialysis. He is right handed. The patient lives in [place]. PAST SURGICAL HISTORY: Appendectomy, left knee replacement, lumbar surgery, hand surgery, and tonsillectomy. ALLERGIES: SULFA. MEDICATIONS: 1. Fluoxetine 20 mg a day. 2. Nifedipine 100 mg t.i.d. 3. Ranitidine 300 mg a day. 4. Atorvastatin 40 mg a day. 5. Hydralazine 25 mg twice a day. 6. Carvedilol 12.5 mg twice a day. 7. Calcitriol 25 mcg twice a day. 8. Furosemide 20 mg twice a day. PAST MEDICAL HISTORY: Hypertension and chronic kidney disease. REVIEW OF SYSTEMS: Ten-point noncontributory. SOCIAL HISTORY: Tobacco, none. Alcohol, none. The patient does office work, managing affordable housing. He reports a normal cardiac stress test early this year with Dr. Fam. PHYSICAL EXAMINATION: VITAL SIGNS: Weight 193 pounds, height 68 inches, blood pressure 163/55, heart rate 58, temperature 98.2 degrees. HEAD, EARS, EYES, NOSE, AND THROAT: Unremarkable. LUNGS: Clear to auscultation. CARDIAC: Regular rhythm without murmur or gallop. ABDOMEN: Soft, nontender. No hernias on standing. Groin is without hernia. Testicles normal. EXTREMITIES: Unremarkable. ASSESSMENT AND PLAN: Chronic kidney disease, not yet started dialysis. We will plan laparoscopic peritoneal dialysis catheter and left arm fistula. He understands the risks and benefits and consents. Job ID: [id number]
[2018-03-08] MEDS ORDERED: Lidocaine 2% PF 5 ML VIAL ONE (11:22)
[2018-03-08] MEDS ORDERED: Protamine Sulfate 50 MG/5 ML VIAL ONE (11:22)
[2018-03-08] MEDS ORDERED: Heparin 10,000 UNITS/1 ML VIAL ONE (11:22)
[2018-03-08] MEDS ORDERED: Bupivacaine HCl 0.5%/Epinephrine 1:200,000/PF 30 ml Vial ONE ×2 (11:22→14:40)
[2018-03-08] MEDS ORDERED: Heparin 5,000 UNITS/ML VIAL ONE (11:22)
[2018-03-08] MEDS ORDERED: Fentanyl 100 MCG/2 ML VIAL ONE (11:23)
[2018-03-08] MEDS ORDERED: Lidocaine 1% PF 5 ML VIAL ONE (17:06)
[2018-03-08] MEDS ORDERED: Heparin 10,000 UNITS/ 10 ML VIAL ONE (17:06)
[2018-03-08] MEDS ORDERED: Glycopyrrolate 0.2 MG/ML 5 ML SYRINGE ONE (17:06)
[2018-03-08] MEDS ORDERED: Ondansetron PF 4 MG/2 ML Vial ONE (17:06)
[2018-03-08] MEDS ORDERED: PROPOFOL 200 MG/20 ML VIAL ONE (17:06)
--- NOTE | 2018-03-08 20:53 | OP ---
DATE OF PROCEDURE: 03/08/2018 PREOPERATIVE DIAGNOSIS: Chronic kidney disease, not yet started dialysis. POSTOPERATIVE DIAGNOSIS: Chronic kidney disease, not yet started dialysis. PROCEDURES PERFORMED: Laparoscopic peritoneal dialysis catheter, double cuffed pigtail; laparoscopic omentopexy; left arm Maurilio fistula calibrated to a 3.5 mm coronary dilator, artery of good caliber, although small. ANESTHESIA: General and local 0.5% Marcaine with epinephrine 30 mL mixed with 2% Xylocaine 10 mL. DESCRIPTION OF PROCEDURE: The patient was taken to the operating room where under general anesthesia, abdomen and left upper extremity were prepared with ChloraPrep and draped in routine fashion. Local anesthetic was infiltrated in the skin and subcutaneous tissue about all operative sites. 0.5% Marcaine with epinephrine 30 mL mixed with 2% Xylocaine 10 mL used. Bilateral subcostal incision was made. Pneumoperitoneum to 15 mmHg was obtained with a Veress needle, replaced with a 5 port and the laparoscope inserted. Contralateral 5-port was placed. A stab incision was made in the left lower quadrant. Did choose an exit site of the PD catheter. A counterincision was made periumbilical just above and through this counterincision, an 8 mm port directed caudally in the subcutaneous tissue through the rectus sheath and abdominal cavity visualized laparoscopically, penetrating the abdominal wall inferiorly. Double-cuffed pigtail peritoneal dialysis catheter was placed through this 8 mm port, grasped with a grasper, and the 8 mm port removed and the internal cuff was placed in the rectus sheath and [place] dissector was placed through the planned exit site just left lateral and slightly inferior and directed to the counterincision, grasping the catheter and pulling out the excess fat and under general traction, placed an external cuff beneath the skin exit site. Subcutaneous tissue was approximated with 3-0 Monocryl, skin with subdermal 4-0 Monocryl, and [place] glue and sterile dressings applied. The omentum seemed to reach low end of the pelvis. Thus, omentopexy laparoscopically performed with transabdominal wall fixation suture of 0 Vicryl. Once this was completed, pneumoperitoneum evacuated after cath irrigated with saline solution and heparinized with saline solution 1000 units of heparin per mL, 10 mL. Laparoscopic trocar sites were closed with interrupted subdermal 4-0 Monocryl and [place] glue applied. Attention was turned to the left arm, where it was sterilely draped and prepped. An incision was made between the radial artery and cephalic vein longitudinally and carried down to the skin and subcutaneous tissue. Cephalic vein and radial artery dissected free. The patient was given 6000 units of heparin intravenously. After adequate circulation time, the cephalic vein on the hand side ligated with a 3-0 silk suture. It was transected, spatulated, and interrogated with coronary dilators, passing coronary dilators from 2 mm to 3.5 mm coronary dilator unobstructed. It was flushed with heparinized saline solution. Radial artery was clamped proximally and distally with vascular clamps. Longitudinal arteriotomy was made sharply, elongating with Plata scissors for 2.5 cm anastomosis between the side radial artery and end cephalic veins by isolating the cephalic vein accordingly and using the continuous suture of 6-0 Prolene for the anastomosis. After completing the anastomosis, good hemostasis was noted. The patient was given 50 mg of protamine intravenously by Anesthesia. Subcutaneous tissue was approximated with 3-0 Monocryl, skin with subdermal 4-0 Monocryl, and [place] glue applied. Doppler signal heard in the fistula and outflow tract. Job ID: [id number]
== END 2018-03-08 17:05 | disposition home or self-care (01) ==
LOC: SDC 06:34
PROVIDERS: ATTEND Specialist
PROC: 0WHG43Z Insertion of Infusion Device into Peritoneal Cavity, Percutaneous Endoscopic Approach (ICD-10-PCS; principal; 2018-03-08)
PROC: 031C0ZF Bypass Left Radial Artery to Lower Arm Vein, Open Approach (ICD-10-PCS; 2018-03-08)
DX: I12.9 Hypertensive chronic kidney disease with stage 1 through stage 4 chronic kidney disease, or unspecified chronic kidney disease (principal); N18.9 Chronic kidney disease, unspecified; E78.00 Pure hypercholesterolemia, unspecified; Z79.899 Other long term (current) drug therapy; Z88.2 Allergy status to sulfonamides
CPT/HCPCS: J0131; J0670; J1644; J2001; J2405; J2704; J2720; J3010

== ENCOUNTER 2018-05-25 12:17 | Outpatient (CLI) | payer MEDICARE ==
--- NOTE | 2018-05-25 13:35 | ULT ---
THYROID SONOGRAM: HISTORY: Thyroid nodule. FINDINGS: Right thyroid lobe is 4.1 cm and left is 4.6 cm. Isthmus is 0.3 cm in thickness. The only visible lesion is a homogeneous, isoechoic, horizontal, oval, 0.4 cm nodule at the inferior pole, left thyroid lobe. Benign appearance. IMPRESSION: No significant abnormalities are demonstrated. POS: [facility]
== END 2018-05-25 12:18 | disposition home or self-care (01) ==
LOC: BICULT 12:17
PROVIDERS: ATTEND Internal Medicine Cardiovascular Disease
DX: E04.1 Nontoxic single thyroid nodule (principal)
CPT/HCPCS: 76536

== ENCOUNTER 2019-01-10 10:53 | Emergency (ER) | payer MEDICARE ==
[2019-01-10 13:52] LABS: #Basophils 0.1 thou/uL (0.0-0.2); #Eosinphils 0.2 thou/uL (0.0-0.7); #Lymphocytes 1.8 thou/uL (1.20-3.40); #Monocytes 0.9 thou/uL (0.11-0.59); #Neutrophils 7.2 thou/uL (1.40-6.50); %Basophils 1.1 % (0.0-1.0); %Eosinophils 2.4 % (0.0-10.0); %Lymphocytes 17.6 % (21.0-51.0); %Neutrophils 69.9 % (42.0-75.0); Hemoglobin 11.7 g/dL (14.0-18.0); Mean Corpuscular HGB CONC 34.4 g/dL (32.0-36.0); Mean Corpuscular Hemoglobin 33.6 pg (27.0-31.0); Mean Corpuscular Volume 97.5 fL (78.0-98.0); Mean Platelet Volume 6.8 fL (7.4-10.4); Platelet Count 301 thou/uL (130-400); RBC Distribution Width 15.4 % (11.5-14.5); Red Blood Cell (RBC) Count 3.47 mill/uL (4.70-6.10); White Blood Cell (WBC) Count 10.3 thou/uL (4.8-10.8)
[2019-01-10 14:13] LABS: ALT (SGPT) 21 U/L (8-55); AST (SGOT) 19 U/L (5-34); Albumin 3.3 g/dL (3.4-4.8); Alkaline Phosphatase 81 U/L (40-110); Anion Gap 15 mmol/L (10-20); BUN (Urea Nitrogen) 63 mg/dL (8.4-25.7); Bilirubin, Total 0.3 mg/dL (0.2-1.2); Calc. Creatinine Clearance 0 mL/min (70-130); Carbon Dioxide 25 mmol/L (23-31); Chloride 97 mmol/L (98-107); Estimated GFR-MDRD 10; Globulin 2.7 g/dL (2.4-3.5); Glucose 89 mg/dL (83-110); Sodium 133 mmol/L (136-145)
--- NOTE | 2019-01-10 14:57 | MRI ---
MRI BRAIN WITHOUT CONTRAST: Date: 01/10/19 HISTORY: Third nerve palsy. FINDINGS: There is ventricular sulcal prominence due to cortical atrophy. There are foci of T2 prolongation in the periventricular white matter consistent with chronic small vessel ischemic disease. No restricted diffusion is seen. No evidence of infarct, hemorrhage, midline shift, or abnormal extra-axial fluid collections are noted. There is mucosal disease in the right maxillary sinus. IMPRESSION: No evidence of acute intracranial process. POS: [facility]
--- NOTE | 2019-01-10 15:12 | MRI ---
MRA [place] noncontrast, 3-D volume rendering DATE: 01/10/2019 1:34 PM HISTORY: 3rd nerve palsy COMPARISON: None FINDINGS: Right: ICA:No significant stenosis. MCA:Mild atherosclerotic irregularity ROBERT:No significant stenosis. AUTOPSY ASSISTANT:No significant stenosis. LEFT: ICA:No significant stenosis. MCA:Mild atherosclerotic irregularity ROBERT:No significant stenosis. AUTOPSY ASSISTANT:No significant stenosis. Vertebrobasilar System: Left Vertebral:No significant stenosis. Right Vertebral:No significant stenosis. Basilar:No significant stenosis. IMPRESSION: No evidence of aneurysm involving the [place].
== END 2019-01-10 15:27 | disposition home or self-care (01) ==
LOC: ERS 10:53
DX: G83.89 Other specified paralytic syndromes (principal); E78.5 Hyperlipidemia, unspecified; I10 Essential (primary) hypertension; Z87.891 Personal history of nicotine dependence; Z79.899 Other long term (current) drug therapy
CPT/HCPCS: 36415; 70544; 70551; 80053; 85025

== ENCOUNTER 2019-02-09 09:38 | Outpatient (CLI) | payer MEDICARE ==
--- NOTE | 2019-02-12 16:44 | EKG ---
Test Reason : Blood Pressure : / mmHG Vent. Rate : 065 BPM Atrial Rate : 065 BPM P-R Int : 136 ms QRS Dur : 096 ms QT Int : 432 ms P-R-T Axes : 045 051 072 degrees QTc Int : 449 ms Sinus rhythm with Premature atrial complexes Otherwise normal ECG When compared with ECG of 03-MAR-2018 11:22, Premature atrial complexes are now Present Confirmed by DR. Noe MARTIN (3) on 02/12/2019 4:44:19 PM Referred By: GUSTAVO Confirmed By:DR. Noe MARTIN
== END 2019-02-09 09:39 | disposition home or self-care (01) ==
LOC: LABBT 09:38
PROVIDERS: ATTEND Thoracic Surgery (Cardiothoracic Vascular Surgery)
DX: Z01.818 Encounter for other preprocedural examination (principal); I25.10 Atherosclerotic heart disease of native coronary artery without angina pectoris
CPT/HCPCS: 93005; 93010

== ENCOUNTER 2019-02-09 14:30 | Inpatient (IN) | payer MEDICARE ==
[2019-02-09 15:40] LABS: Hemoglobin 9.9 g/dL (14.0-18.0); Mean Corpuscular HGB CONC 33.9 g/dL (32.0-36.0); Mean Corpuscular Hemoglobin 32.9 pg (27.0-31.0); Mean Corpuscular Volume 96.9 fL (78.0-98.0); Mean Platelet Volume 7.2 fL (7.4-10.4); Platelet Count 269 thou/uL (130-400); RBC Distribution Width 14.6 % (11.5-14.5); Red Blood Cell (RBC) Count 3.02 mill/uL (4.70-6.10); White Blood Cell (WBC) Count 9.2 thou/uL (4.8-10.8)
[2019-02-09 15:59] LABS: Anion Gap 16 mmol/L (10-20); BUN (Urea Nitrogen) 65 mg/dL (8.4-25.7); Calc. Creatinine Clearance 0 mL/min (70-130); Calcium 8.9 mg/dL (7.8-10.44); Carbon Dioxide 26 mmol/L (23-31); Chloride 100 mmol/L (98-107); Estimated GFR-MDRD 10; Glucose 89 mg/dL (83-110); Potassium 3.6 mmol/L (3.5-5.1); Sodium 138 mmol/L (136-145)
[2019-02-12] MEDS ORDERED: Fentanyl 250 MCG/5 ML VIAL ONE (06:26)
[2019-02-12] MEDS ORDERED: Nitroglycerin 50 MG/250 ML BOT 250 ML ONE (06:26)
[2019-02-12] MEDS ORDERED: Norepinephrine 4 MG/4 ML VIAL ONE (06:27)
[2019-02-12] MEDS ORDERED: Albumin 5% 0 ML ONE (06:40)
[2019-02-12 07:15] LABS: Anion Gap 15 mmol/L (10-20); BUN (Urea Nitrogen) 64 mg/dL (8.4-25.7); Calc. Creatinine Clearance 12 mL/min (70-130); Calcium 9.1 mg/dL (7.8-10.44); Carbon Dioxide 24 mmol/L (23-31); Chloride 99 mmol/L (98-107); Estimated GFR-MDRD 10; Glucose 102 mg/dL (83-110); Potassium 3.4 mmol/L (3.5-5.1); Sodium 135 mmol/L (136-145)
[2019-02-12] MEDS ORDERED: Ketamine 50 MG/ML (10ML VIAL) ONE (07:24)
[2019-02-12] MEDS ORDERED: Insulin Regular 300 UNITS/3 ML VIAL ONE (09:14)
[2019-02-12] MEDS ORDERED: Heparin 30,000 units/30 ml VIAL ONE (11:08)
[2019-02-12] MEDS ORDERED: Succinylcholine Chloride 20 MG/ML 10 ml SYRINGE FS ONE (11:08)
[2019-02-12] MEDS ORDERED: Heparin 5,000 UNITS/ML VIAL ONE (11:08)
[2019-02-12] MEDS ORDERED: Thrombin 5000 UNITS/5 ML VIAL ONE (11:08)
[2019-02-12] MEDS ORDERED: Potassium Chloride 60 MEQ/30 ML VIAL ONE (11:08)
[2019-02-12] MEDS ORDERED: Aminocaproic Acid 5 GM/20 ML VIAL ONE (11:08)
[2019-02-12] MEDS ORDERED: Protamine Sulfate 250 MG/25 ML VIAL ONE (11:08)
[2019-02-12] MEDS ORDERED: Magnesium Sulfate 1 GM/2 ML VIAL ONE (11:08)
[2019-02-12] MEDS ORDERED: Cardioplegic Soln 1,000 ML BAG ONE (11:08)
[2019-02-12] MEDS ORDERED: Lidocaine 2% PF 100 mg/5 ml Syringe ONE (11:08)
[2019-02-12] MEDS ORDERED: Papaverine 60 MG/2 ML VIAL ONE (11:08)
[2019-02-12] MEDS ORDERED: Rocuronium Bromide 10 MG/ML (10ML VIAL) ONE (11:08)
[2019-02-12] MEDS ORDERED: PROPOFOL 200 MG/20 ML VIAL ONE (11:08)
[2019-02-12] MEDS ORDERED: Lidocaine 1% PF 5 ML VIAL ONE (11:08)
[2019-02-12] MEDS ORDERED: Sodium Bicarb 50 MEQ/50 ML Abboject 8.4% SYRINGE ONE (11:08)
[2019-02-12] MEDS ORDERED: Vecuronium 10 MG VIAL ONE (11:08)
[2019-02-12] MEDS ORDERED: Calcium Chloride 1 GM/10 ML Abboject SYRINGE ONE (11:08)
[2019-02-12] MEDS ORDERED: Lidocaine 2% PF 5 ML VIAL ONE (11:14)
[2019-02-12] MEDS ORDERED: Bisacodyl 5 MG TAB PO PRN (11:35)
[2019-02-12] MEDS ORDERED: niCARdipine 25 MG in Sodium Chloride 0.9% 250 ML 250 ML IVPB PRN (11:35)
[2019-02-12] MEDS ORDERED: Post-Op Insulin Drip Protocol IVPB ONE (11:35)
[2019-02-12] MEDS ORDERED: NOREPINEPHRINE IVPB PRN (11:35)
[2019-02-12] MEDS ORDERED: Magnesium 2 GM/50 ML 2 GM in Premix Bag 1 BAG IVPB SCH (11:35)
[2019-02-12] MEDS ORDERED: SODIUM CHLORIDE IVPB PRN (11:35)
[2019-02-12] MEDS ORDERED: Morphine 2 MG/ML SYRINGE SLOW IVP PRN (11:35)
[2019-02-12] MEDS ORDERED: Ondansetron PF 4 MG/2 ML Vial IVP PRN (11:35)
[2019-02-12] MEDS ORDERED: HYDROcodone/Acetaminophen 5/325 mg Tablet PO PRN ×2 (11:35)
[2019-02-12] MEDS ORDERED: Hetastarch 6% 500 ML 500 ML IVPB PRN (11:35)
[2019-02-12] MEDS ORDERED: Mag-Al 1200 mg/1200 mg/30 ML UDCUP PO PRN (11:35)
[2019-02-12] MEDS ORDERED: ADMIXTURE FEE IVPB PRN (11:35)
[2019-02-12] MEDS ORDERED: Fentanyl 100 MCG/2 ML VIAL SLOW IVP PRN ×2 (11:35)
[2019-02-12] MEDS ORDERED: Guaifenesin DM 100-10/5 ML UDCUP PO PRN (11:35)
[2019-02-12] MEDS ORDERED: Acetaminophen 325 MG TAB PO PRN (11:35)
[2019-02-12] MEDS ORDERED: Potassium Chloride 20 MEQ/100 ML PREMIX BAG IVPB PRN (11:35)
[2019-02-12] MEDS ORDERED: Bisacodyl 10 MG SUPP PR PRN (11:35)
[2019-02-12] MEDS ORDERED: hydrALAZINE 20 MG/ML VIAL SLOW IVP PRN (11:35)
[2019-02-12] MEDS ORDERED: Propofol 500 MG/50 ML VIAL ONE (11:45)
[2019-02-12] MEDS ORDERED: Dextrose 50% Abboject 50 ML SYRINGE SLOW IVP PRN (11:59)
[2019-02-12] MEDS ORDERED: Dextrose 5% in Water 1,000 ML IV PRN (11:59)
[2019-02-12] MEDS ORDERED: HUMULIN R 100 UNITS in Sodium Chloride 0.9% 100 ML IVPB SCH (11:59)
[2019-02-12 12:06] LABS: Actual Bicarbonate (HCO3a) 21.5 mEq/L (22-28); Base Excess (BEa) -3.1 mEq/L (-2.0 to +3.0); Calcium, Ionized 1.17 mmol/L (1.12-1.30); Carboxyhemoglobin (COHb) 0.6 gm% (0.0-3.0); Hemoglobin (Hb) 11.1 g/dL (14.0-18.0); O2 Tension (PaO2) 149.4 mmHg (> 70.0); Potassium - ABG Lab 4.11 mmol/L (3.70-5.30); pH, Arterial 7.38 (7.35-7.45)
[2019-02-12 12:07] LABS: Puncture Site ALINE
--- NOTE | 2019-02-12 12:07 | OP ---
DATE OF PROCEDURE: 02/12/2019 PREOPERATIVE DIAGNOSIS: Coronary artery disease. PROCEDURE PERFORMED: Coronary artery bypass graft x3. SUPPLY CHAIN SPECIALIST: Hank Gonzalez MD. FINDINGS: The patient had a large LANE to a 2-mm LAD, good saphenous vein graft to a 1.5 mm diagonal and to a 2.5 mm distal right coronary artery. DESCRIPTION OF PROCEDURE: After adequate anesthesia had been obtained, the patient was prepped and draped and Dr. Gonzalez did an endovascular vein harvest of the left greater saphenous vein while I performed a median sternotomy, harvesting the LANE without entering the pleura. Heparin was given. The LANE divided distally and passed posterior to the thymus through a hole in the pericardium. Aorta and right atrium were cannulated with aorta and right atrial appendage being more or less under the right side of the sternum. Cardiopulmonary bypass was begun. The aorta was cross clamped, and after a liter of cold blood cardioplegia, 3 distal anastomoses were completed. Cross-clamp removed, partial occluding clamp placed and 2 vein anastomoses performed on the aortic root and marked with rings. The patient was then weaned from cardiopulmonary bypass. Cannula was removed and protamine given systemically. Aortic cannulation site reinforced with a Prolene suture. Mediastinal drains x2 were placed, following which the sternum was reapproximated with #7 interrupted wire using vancomycin paste on the sternal edges, platelet-rich blood and platelet-poor plasma. Subcutaneous tissue and skin were closed in layers. The patient is to be taken to the ICU in guarded condition. Job ID: [id number]
--- NOTE | 2019-02-12 12:15 | RAD ---
Exam: Chest one view HISTORY:Status post open heart surgery Comparison: 02/27/2018 FINDINGS: Cardiac silhouette:Normal Lines and tubes: Endotracheal tube, right-sided central venous catheter and mediastinal drainage cath eter are noted. There are vascular rings and sternotomy wires Aorta: Unremarkable Pulmonary vessels: Normal Costophrenic angles: Clear LUNGS: No masses or consolidation. Lung volumes are diminished. Pneumothorax: None Osseous abnormalities: None IMPRESSION: Findings compatible with recent open heart surgery.
[2019-02-12 12:23] LABS: INR-International Normal Ratio 1.3; Prothrombin Time 15.8 SEC (12.0-14.7)
[2019-02-12 12:30] LABS: Anion Gap 14 mmol/L (10-20); BUN (Urea Nitrogen) 62 mg/dL (8.4-25.7); Calc. Creatinine Clearance 14 mL/min (70-130); Calcium 8.4 mg/dL (7.8-10.44); Carbon Dioxide 20 mmol/L (23-31); Chloride 106 mmol/L (98-107); Estimated GFR-MDRD 11; Glucose 104 mg/dL (83-110); Potassium 4.4 mmol/L (3.5-5.1); Sodium 136 mmol/L (136-145)
[2019-02-12 12:49] LABS: Band 12 % (5-11); Hemoglobin 10.6 g/dL (14.0-18.0); Lymphocytes 9 % (21-51); MDiff Complete? YES; Mean Corpuscular Hemoglobin 32.7 pg (27.0-31.0); Mean Corpuscular Volume 93.4 fL (78.0-98.0); Mean Platelet Volume 8.3 fL (7.4-10.4); Metamyelocyte 2 % (0-0); Monocytes 5 % (0-10); Neutrophil 72 % (42-75); Platelet Count 174 thou/uL (130-400); Platelet Morphology Comment Appears Adequate; RBC Distribution Width 15.4 % (11.5-14.5); RBC Morphology Normal; Red Blood Cell (RBC) Count 3.25 mill/uL (4.70-6.10); White Blood Cell (WBC) Count 18.6 thou/uL (4.8-10.8)
[2019-02-12] MEDS: DOPamine 400 MG/D5W 250 ML 250 ML IVPB PRN ×2 (12:57→20:42)
[2019-02-12] MEDS ORDERED: Sodium Chloride 0.9% 1,000 ML IV SCH (13:00)
[2019-02-12] MEDS: CEFAZOLIN 2 GM in Premix Bag 1 BAG IVPB SCH (15:31)
[2019-02-12 17:52] LABS: Hemoglobin 11.4 g/dL (14.0-18.0)
[2019-02-12 18:04] LABS: Potassium 3.4 mmol/L (3.5-5.1)
[2019-02-12] MEDS: FLUoxetine HCl 20 MG CAP PO SCH (21:16)
[2019-02-12] MEDS: Atorvastatin Calcium 40 MG TAB PO SCH (21:16)
[2019-02-13] MEDS: CEFAZOLIN 2 GM in Premix Bag 1 BAG IVPB SCH ×2 (00:31→06:09)
[2019-02-13] MEDS: Nitroglycerin 50 MG/250 ML BOT 250 ML IVPB PRN (00:51)
[2019-02-13 04:36] LABS: #Lymphocytes 0.8 thou/uL (1.20-3.40); #Monocytes 1.6 thou/uL (0.11-0.59); #Neutrophils 15.8 thou/uL (1.40-6.50); %Basophils 0.1 % (0.0-1.0); %Eosinophils 0.1 % (0.0-10.0); %Lymphocytes 4.2 % (21.0-51.0); %Monocytes 8.9 % (0.0-10.0); %Neutrophils 86.7 % (42.0-75.0); Mean Corpuscular HGB CONC 34.1 g/dL (32.0-36.0); Mean Corpuscular Hemoglobin 32.4 pg (27.0-31.0); Mean Corpuscular Volume 95.1 fL (78.0-98.0); Mean Platelet Volume 7.5 fL (7.4-10.4); Platelet Count 201 thou/uL (130-400); RBC Distribution Width 15.8 % (11.5-14.5); Red Blood Cell (RBC) Count 3.08 mill/uL (4.70-6.10); White Blood Cell (WBC) Count 18.2 thou/uL (4.8-10.8)
[2019-02-13 04:52] LABS: Anion Gap 18 mmol/L (10-20); BUN (Urea Nitrogen) 68 mg/dL (8.4-25.7); Calc. Creatinine Clearance 11 mL/min (70-130); Calcium 8.8 mg/dL (7.8-10.44); Carbon Dioxide 18 mmol/L (23-31); Chloride 106 mmol/L (98-107); Estimated GFR-MDRD 9; Glucose 118 mg/dL (83-110); Potassium 4.1 mmol/L (3.5-5.1); Sodium 138 mmol/L (136-145)
[2019-02-13 06:46] LABS: Actual Bicarbonate (HCO3a) 15.8 mEq/L (22-28); Base Excess (BEa) -6.3 mEq/L (-2.0 to +3.0); Calcium, Ionized 1.16 mmol/L (1.12-1.30); Carboxyhemoglobin (COHb) 0.2 gm% (0.0-3.0); Hemoglobin (Hb) 10.4 g/dL (14.0-18.0); O2 Tension (PaO2) 155.7 mmHg (> 70.0); Potassium - ABG Lab 4.13 mmol/L (3.70-5.30); pH, Arterial 7.47 (7.35-7.45)
[2019-02-13 06:47] LABS: CO2 Tension 22.2 mmHg (35.0-45.0)
[2019-02-13 06:48] LABS: Puncture Site ALINE
[2019-02-13] MEDS: Carvedilol 6.25 MG TAB PO SCH ×2 (07:42→17:27)
[2019-02-13] MEDS: Aspirin 325 MG TAB PO SCH (07:42)
[2019-02-13] MEDS: hydrALAZINE 25 MG TAB PO SCH ×3 (07:43→20:09)
[2019-02-13] MEDS: Famotidine/PF 20 mg/2ml Vial SLOW IVP SCH (07:43)
--- NOTE | 2019-02-13 07:59 | CON ---
DATE OF CONSULTATION: 02/12/2019 CONSULTING PHYSICIAN: Valeriano Alicia MD REASON FOR CONSULTATION: End-stage renal disease, on PD. REASON FOR ADMISSION: Elective admission for CABG. HISTORY OF PRESENT ILLNESS: This is a 78-year-old male with a history of end-stage renal disease, on peritoneal dialysis, hypertension, hyperlipidemia, coronary artery disease, came to the hospital for CABG. The patient is having renal transplant evaluation. He does get peritoneal dialysis every night and does by himself. He is very compliant. On his transplant workup, he was found to have severe coronary artery disease and had followed with Dr. Alicia who recommended CABG and he was electively admitted for CABG. He did his PD last night. The patient is currently intubated, seen in ICU postop and his blood pressure remains low even on pressors and he has been closely monitored. No fever or chills. PAST MEDICAL HISTORY: Positive for end-stage renal disease, on peritoneal dialysis, hyperlipidemia, hypertension, GERD, pancreatitis. PAST SURGICAL HISTORY: Appendectomy, lumbar fusion, left knee arthroplasty, tonsillectomy. HOME MEDICATIONS: Include, 1. Vitamin B12. 2. Isosorbide mononitrate. 3. Prozac. 4. Carvedilol. 5. Aspirin. 6. Ferrous sulfate. 7. Hydralazine. 8. Furosemide. 9. Nifedipine. ALLERGIES: SULFA. SOCIAL HISTORY: Former smoker. No alcohol or illicit drug abuse. FAMILY HISTORY: No history of kidney disease. REVIEW OF SYSTEMS: CONSTITUTIONAL: Negative for weight loss or gain, ability to conduct usual activities. SKIN: Negative for rash, itching. EYES: Negative for double vision, pain. ENT/MOUTH: Negative for nose bleeding, neck stiffness, pain, tenderness. CARDIOVASCULAR: Negative for palpitations, dyspnea on exertion, orthopnea. RESPIRATORY: Negative for shortness of breath, wheezing, cough, hemoptysis, fever or night sweats. GASTROINTESTINAL: Negative for poor appetite, abdominal pain, heartburn, nausea, vomiting, constipation, or diarrhea. GENITOURINARY: Negative for urgency, frequency, dysuria, nocturia. MUSCULOSKELETAL: Negative for pain, swelling. NEUROLOGIC/PSYCHIATRIC: Negative for anxiety, depression. ALLERGY/IMMUNOLOGIC: Negative for skin rash, bleeding tendency. Rest are all negative review of systems. PHYSICAL EXAMINATION: GENERAL: This is a well-built male, seen in ICU, intubated. VITAL SIGNS: Temperature 97.6, pulse 77, respiratory rate 16, blood pressure 97/46 on pressors. HEENT: Intubated. CV: S1 and S2 heard. RESPIRATORY: Clear. GI: Abdomen is soft. MUSCULOSKELETAL: No edema. DERMATOLOGIC: No skin rash. NEUROLOGICAL: Intubated. LABORATORY DATA: Hemoglobin is 10.6. Potassium is 4.4, BUN is 62, creatinine is 5.1. ASSESSMENT AND PLAN: 1. End-stage renal disease, on peritoneal dialysis. He remains hypotensive on pressors. Plan is to hold dialysis. Labs are stable. We will monitor labs. 2. Edema. Limit fluid intake and we will monitor. 3. History of hypertension, currently hypotensive. 4. History of anemia. We will monitor and add Epogen as tolerated. Plan is to monitor labs closely. We will hold dialysis tonight given his hypertensive episode and cautious IV hydration is recommended at this time with close monitoring of hemodynamic status including cardiorespiratory status. We will follow. Thank you for the consult. Job ID: [id number]
[2019-02-13] MEDS ORDERED: Epoetin (ESRD) 20,000 UNITS/ML SC SCH (08:00)
--- NOTE | 2019-02-13 08:12 | RAD ---
EXAM: Single view of the chest HISTORY: Status post open heart surgery COMPARISON: 02/12/2019 FINDINGS: Single view of the chest shows an enlarged but stable cardiomediastinal silhouette. The pa tient is status post CABG. The lines and tubes are unchanged in position. There is no evidence of consolidation, mass, or pleural effusion. The bones are unremarkable. IMPRESSION: Stable exam
--- NOTE | 2019-02-13 08:22 | PRG ---
DATE OF SERVICE: 02/13/2019 SUBJECTIVE: Patient was seen and examined at bedside and overnight events noted. Patient denies any shortness of breath or chest pain or palpitation. No history of nausea or vomiting or diarrhea or fever or chills or cramps. OBJECTIVE: GENERAL: This is a well built male in no apparent distress. VITAL SIGNS: Temperature 98, pulse 64, respiratory rate 20, and blood pressure 138/76. HEENT: Atraumatic, normocephalic. Oral mucosa is moist NECK: Supple. CARDIOVASCULAR: S1, S2 heard. Rate and rhythm regular. RESPIRATORY: Clear to auscultation. GASTROINTESTINAL: Abdomen is soft. MUSCULOSKELETAL: No tenderness. No edema. DERMATOLOGIC: No skin rash. NEUROLOGIC: Alert and awake and oriented X3. No focal neurologic deficits. Moving all the extremities. PSYCHIATRIC: Mood and affect normal. LABORATORY DATA: Potassium 4.1, BUN is 68, creatinine is 6.1. ASSESSMENT AND PLAN: 1. End-stage renal disease, on peritoneal dialysis. I had to hold dialysis last night due to hypotension. Plan is to resume peritoneal dialysis tonight if tolerated and we will decide on the dose based on his blood pressure in the evening. 2. Edema. Limit fluid intake. 3. History of hypertension, currently on nitroglycerin drip and nurse is trying to wean it off. 4. Chronic anemia. We will add Epogen as tolerated. PLAN: To continue on peritoneal dialysis as tolerated. We will have close monitor. Job ID: [id number]
[2019-02-13] MEDS ORDERED: Prevnar 13-Val Conj/PF 0.5 ML SYRINGE IM ONE (09:00)
[2019-02-13] MEDS ORDERED: FLU VACC TS2019-20(65YR UP)/PF 180 MCG/0.5 ML SYRINGE IM ONE (09:00)
--- NOTE | 2019-02-13 09:16 | CON ---
DATE OF CONSULTATION: 02/13/2019 SUBJECTIVE: Mr. Carroll is doing well. He is status post bypass surgery with LANE to the LAD, saphenous vein graft to diagonal and saphenous vein graft to a distal right coronary artery. He is currently on IV nitroglycerin. He is also on Coreg with heart rate in the 60s. No current complaints. Chest tube still in place. OBJECTIVE: VITAL SIGNS: Blood pressure 158/70, pulse 64, respirations 20. LUNGS: Clear to auscultation. HEART: Regular rate and rhythm. ABDOMEN: Soft, nontender, nondistended. EXTREMITIES: No edema. PERTINENT LABORATORY DATA: Hemoglobin 10.0, white blood cell count 18.2, creatinine 6.1, CO2 of 18. IMPRESSION: 1. Severe CAD. 2. Status post bypass surgery. 3. End-stage renal disease. RECOMMENDATIONS: 1. Continue close ICU care. 2. Wean off IV nitroglycerin. 3. Continue low-dose Coreg and atorvastatin. 4. Further recommendations on chest tube per CV surgery. Job ID: [id number]
[2019-02-13] MEDS ORDERED: EPOETIN ALFA-EPBX (ESRD) 10,000 UNIT/ML VIAL SC SCH (12:00)
[2019-02-13] MEDS: Insulin Regular 300 UNITS/3 ML VIAL SC PRN ×2 (17:27→20:59)
[2019-02-13] MEDS: Atorvastatin Calcium 40 MG TAB PO SCH (20:09)
[2019-02-13] MEDS: FLUoxetine HCl 20 MG CAP PO SCH (20:09)
--- NOTE | 2019-02-13 20:31 | CON ---
DATE OF CONSULTATION: 02/13/2019 HISTORY OF PRESENT ILLNESS: Mr. Carroll is a wonderful, pleasant 78-year-old male , who underwent coronary artery bypass grafting yesterday. He is extubated per protocol. He had a LANE to his LAD, a saphenous vein to a diagonal and a saphenous vein to right coronary. He has no complaints. He denies leg discomfort and says he has minimal chest discomfort. He still has chest tube in. He has no pneumothorax. He does have an air leak noticed on this chest tube. PAST MEDICAL HISTORY: 1. 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 2. History of end-stage renal disease. 3. History of peritoneal dialysis. 4. History of hypertension. 5. History of lipid disorder. 6. History of reflux disease. 7. History of pancreatitis. 8. History of appendectomy. 9. History of lumbar fusion. 10. History of knee arthroplasty on the left. 11. History of tonsillectomy. 12. He is a nonsmoker and nondrinker. MEDICATIONS: Prior to admission have been reviewed. ALLERGIES: HE REPORTS ALLERGY TO SULFA. REVIEW OF SYSTEMS: 10 point review of systems completed, otherwise negative. FAMILY HISTORY: Non contributory. SOCIAL HISTORY: He is . His is in the room. 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 We were on long interesting discussion about that. PHYSICAL EXAMINATION: VITAL SIGNS: Heart rate in the 70s, blood pressure 154/80, respiratory rate 24, oximetry is 97. HEENT: His right pupil reacts, sclera is anicteric. He has a patch over his left eye. NECK: Supple without lymphadenopathy. His sternum is bandaged. He has equal breath sounds. LUNGS: Clear. HEART: Regular rhythm. ABDOMEN: Soft and nontender. EXTREMITIES: Without clubbing, cyanosis, or edema. NEUROLOGIC: Nonfocal. LABORATORY DATA: White count 18.2, hemoglobin 10.0, platelets 201,000. Sodium 138, potassium 4.1, chloride 106, bicarb 18, BUN 68, creatinine 6.1. IMPRESSION: Status post coronary bypass grafting in a patient with end-stage renal disease, on home peritoneal dialysis. He actually looks amazingly well. Hopefully, he will have a short stay in the hospital. I will be happy to follow while he is in the critical care unit. TIME SPENT: This is a 70-minute consult, with greater than 50% of the time spent on the unit coordinating care. Job ID: [id number] MTDD
[2019-02-14] MEDS: Insulin Regular 300 UNITS/3 ML VIAL SC PRN (00:29)
[2019-02-14 04:35] LABS: #Lymphocytes 0.9 thou/uL (1.20-3.40); #Monocytes 1.8 thou/uL (0.11-0.59); #Neutrophils 13.6 thou/uL (1.40-6.50); %Basophils 0.1 % (0.0-1.0); %Eosinophils 0.1 % (0.0-10.0); %Lymphocytes 5.7 % (21.0-51.0); %Monocytes 10.8 % (0.0-10.0); %Neutrophils 83.4 % (42.0-75.0); Hemoglobin 9.3 g/dL (14.0-18.0); Mean Corpuscular HGB CONC 33.2 g/dL (32.0-36.0); Mean Corpuscular Hemoglobin 31.7 pg (27.0-31.0); Mean Corpuscular Volume 95.6 fL (78.0-98.0); Mean Platelet Volume 7.3 fL (7.4-10.4); Platelet Count 199 thou/uL (130-400); RBC Distribution Width 15.7 % (11.5-14.5); Red Blood Cell (RBC) Count 2.94 mill/uL (4.70-6.10); White Blood Cell (WBC) Count 16.3 thou/uL (4.8-10.8)
[2019-02-14 04:53] LABS: Anion Gap 16 mmol/L (10-20); BUN (Urea Nitrogen) 70 mg/dL (8.4-25.7); Calc. Creatinine Clearance 12 mL/min (70-130); Calcium 8.7 mg/dL (7.8-10.44); Carbon Dioxide 23 mmol/L (23-31); Chloride 102 mmol/L (98-107); Estimated GFR-MDRD 9; Glucose 113 mg/dL (83-110); Potassium 3.6 mmol/L (3.5-5.1); Sodium 137 mmol/L (136-145)
[2019-02-14 05:35] VITALS: BMI 28.1
[2019-02-14] MEDS: Nitroglycerin 50 MG/250 ML BOT 250 ML IVPB PRN (06:28)
[2019-02-14] MEDS: Carvedilol 6.25 MG TAB PO SCH ×4 (07:32→20:58)
[2019-02-14] MEDS: hydrALAZINE 25 MG TAB PO SCH ×3 (08:23→20:57)
[2019-02-14] MEDS: NIFEdipine XL 60 MG TAB PO SCH (08:23)
[2019-02-14] MEDS: Aspirin 325 MG TAB PO SCH (08:23)
[2019-02-14] MEDS: Famotidine/PF 20 mg/2ml Vial SLOW IVP SCH (08:24)
--- NOTE | 2019-02-14 08:48 | PRG ---
DATE OF SERVICE: 02/14/2019 SUBJECTIVE: Mr. Carroll is doing very well. No current complaints. He continues to maintain sinus rhythm. His chest tubes have been discontinued. He is seen sitting up having breakfast. OBJECTIVE: VITAL SIGNS: Blood pressure 135/77, pulse 72 and temperature afebrile. LUNGS: Clear to auscultation. HEART: Regular rate and rhythm. ABDOMEN: Soft, nontender, nondistended. EXTREMITIES: No edema. IMPRESSION: 1. Coronary artery disease. 2. Status post bypass surgery. 3. End-stage renal disease. 4. Hypertension. RECOMMENDATIONS: 1. He continues to be on IV nitroglycerine. 2. Increase carvedilol to 6.25 t.i.d. 3. Add amlodipine 5 mg one p.o. q.a.m. 4. Attempted to discontinue nitroglycerin. 5. Incentive spirometry and physical therapy. Job ID: [id number]
[2019-02-14] MEDS ORDERED: Carvedilol 6.25 MG TAB PO SCH (09:00)
--- NOTE | 2019-02-14 09:02 | RAD ---
PORTABLE CHEST 1 VIEW: Date: 02/14/19 Time: 0449 hours HISTORY: Postop open heart surgery, respiratory distress. FINDINGS/IMPRESSION: There has been interval removal of the endotracheal tube since the previous day's exam. The other sruthi e and tube placements are unchanged in position. The heart size is normal. There is atelectatic [place] e in the left lung base with accompanying small left pleural effusion. No pneumothoraces seen. POS: JOSEFA
[2019-02-14] MEDS ORDERED: HYDROcodone/Acetaminophen 5/325 mg Tablet PO PRN (09:13)
[2019-02-14] MEDS ORDERED: Mag-Al 1200 mg/1200 mg/30 ML UDCUP PO PRN (09:13)
[2019-02-14] MEDS ORDERED: Bisacodyl 5 MG TAB PO PRN (09:13)
[2019-02-14] MEDS ORDERED: Artificial Tears 18 DROP/0.9 ML EA EYE PRN (09:13)
[2019-02-14] MEDS ORDERED: Acetaminophen 325 MG TAB PO PRN (09:13)
[2019-02-14] MEDS ORDERED: Zolpidem Tartrate 5 MG TAB PO PRN (09:13)
[2019-02-14] MEDS ORDERED: Mineral Oil ENEMA PR PRN (09:13)
[2019-02-14] MEDS ORDERED: Guaifenesin DM 100-10/5 ML UDCUP PO PRN (09:13)
[2019-02-14] MEDS ORDERED: Nitroglycerin 0.4 MG TAB (25 Tab Bottle) SL PRN (09:13)
[2019-02-14] MEDS ORDERED: Bisacodyl 10 MG SUPP PR PRN (09:13)
[2019-02-14] MEDS ORDERED: Fentanyl 100 MCG/2 ML VIAL SLOW IVP PRN (09:13)
[2019-02-14] MEDS: Amlodipine 5 MG TAB PO SCH (09:27)
[2019-02-14] MEDS: Polyethylene Glycol 3350 17 GM Packet PO SCH (10:01)
[2019-02-14] MEDS: Aspirin 325 mg Enteric Coated Tablet PO SCH (10:09)
--- NOTE | 2019-02-14 10:47 | PRG ---
DATE OF SERVICE: 02/14/2019 SUBJECTIVE: Patient was seen and examined at bedside and overnight events noted. Patient denies any shortness of breath or chest pain or palpitation. No history of nausea or vomiting or diarrhea or fever or chills or cramps. OBJECTIVE: GENERAL: This is a well-built male, in no apparent distress. VITAL SIGNS: Temperature 98.8, pulse 64, respiratory rate 20, and blood pressure 140/71. HEENT: Atraumatic, normocephalic. Oral mucosa is moist NECK: Supple. CARDIOVASCULAR: S1, S2 heard. Rate and rhythm regular. RESPIRATORY: Clear to auscultation. GASTROINTESTINAL: Abdomen is soft. MUSCULOSKELETAL: No tenderness. No edema. DERMATOLOGIC: No skin rash. NEUROLOGIC: Alert and awake and oriented X3. No focal neurologic deficits. Moving all the extremities. PSYCHIATRIC: Mood and affect normal. LABORATORY DATA: Potassium 3.6, BUN is 70, and creatinine is 6.2. ASSESSMENT AND PLAN: 1. End-stage renal disease, on peritoneal dialysis. Plan is to continue on dialysis. The patient tolerated dialysis well last night. 2. History of hypertension, stable. 3. Edema. We will continue limit fluid intake. 4. Chronic anemia. Epogen added. Plan is to continue dialysis as tolerated and he is tolerating so far and he is recovering very well. Job ID: [id number]
--- NOTE | 2019-02-14 13:18 | PRG ---
DATE OF SERVICE: 02/14/2019 SUBJECTIVE: Ramiro Carroll had no complaints overnight. OBJECTIVE: VITAL SIGNS: He is afebrile, heart rate 75, respiratory rate 22, oximetry is 96% on room air, and blood pressure 152/62. LUNGS: Clear. HEART: Regular rhythm. ABDOMEN: Soft. CHEST: Chest tubes are out. LABORATORY DATA: White count 16.3, hemoglobin 9.3, and platelets 199. Electrolytes are normal. BUN 70 and creatinine 6.28. IMPRESSION: 1. Status post coronary artery bypass grafting. 2. End-stage renal disease, on peritoneal dialysis, remains quite functional. 3. Third nerve palsy with a patch over his left eye at this point in time. Overall, he looks great. He is tentatively waiting for telemetry bed to move out of the Critical Care Unit. 4. Other problems include hypertension, lipid disorder, reflux, history of pancreatitis, history of lumbar fusion. There are no other acute issues at this time. Job ID: [id number]
--- NOTE | 2019-02-14 18:47 | EKG ---
Test Reason : POST CABG Blood Pressure : / mmHG Vent. Rate : 053 BPM Atrial Rate : 053 BPM P-R Int : 138 ms QRS Dur : 094 ms QT Int : 498 ms P-R-T Axes : 270 053 074 degrees QTc Int : 467 ms Unusual P axis and short NC, probable junctional rhythm Abnormal ECG When compared with ECG of 09-FEB-2019 15:20, (Unconfirmed) Junctional rhythm has replaced Sinus rhythm Confirmed by DR. Shabnam GIORDANO ([id number]) on 02/14/2019 6:46:32 PM Referred By: ELAINE Confirmed By:DR. Shabnam GIORDANO
[2019-02-14] MEDS: FLUoxetine HCl 20 MG CAP PO SCH (20:58)
[2019-02-14] MEDS: Atorvastatin Calcium 40 MG TAB PO SCH (20:58)
[2019-02-15] MEDS: hydrALAZINE 25 MG TAB PO SCH ×3 (08:35→20:11)
[2019-02-15] MEDS: Carvedilol 6.25 MG TAB PO SCH ×3 (08:35→20:10)
[2019-02-15] MEDS: Amlodipine 5 MG TAB PO SCH (08:36)
[2019-02-15] MEDS: NIFEdipine XL 60 MG TAB PO SCH (08:36)
[2019-02-15] MEDS: Polyethylene Glycol 3350 17 GM Packet PO SCH (08:37)
[2019-02-15] MEDS: Aspirin 325 mg Enteric Coated Tablet PO SCH (08:37)
--- NOTE | 2019-02-15 09:25 | PRG ---
DATE OF SERVICE: 02/15/2019 SUBJECTIVE: Patient was seen and examined at bedside and overnight events noted. Patient denies any shortness of breath or chest pain or palpitation. No history of nausea or vomiting or diarrhea or fever or chills or cramps. OBJECTIVE: GENERAL: This is a well-built male, in no apparent distress. VITAL SIGNS: Temperature 98.3. Heart rate 74. Respiratory rate 16. Blood pressure 139/67. HEENT: Atraumatic, normocephalic. Oral mucosa is moist NECK: Supple. CARDIOVASCULAR: S1, S2 heard. Rate and rhythm regular. RESPIRATORY: Clear to auscultation. GASTROINTESTINAL: Abdomen is soft. MUSCULOSKELETAL: No tenderness. No edema. DERMATOLOGIC: No skin rash. NEUROLOGIC: Alert and awake and oriented X3. No focal neurologic deficits. Moving all the extremities. PSYCHIATRIC: Mood and affect normal. LABORATORY DATA: Not done today. ASSESSMENT AND PLAN: 1. End-stage renal disease. Continue on peritoneal dialysis as tolerated. 2. Hypertension. 3. Edema. Remove fluid. 4. Anemia. We will continue Epogen. The patient is tolerating dialysis well. He complains of constipation today. We will add lactulose and advise nurse to monitor that closely. Job ID: [id number]
[2019-02-15] MEDS ORDERED: Heparin 10,000 UNITS/ 10 ML VIAL ONE (11:30)
[2019-02-15] MEDS ORDERED: Heparin 1,000 UNITS/ML (10 ml) 6,000 UNITS in PERITON.DIALYSIS 7-2.5 % DEXTR 6,000 ML FS SCH (12:45)
--- NOTE | 2019-02-15 16:15 | PRG ---
DATE OF SERVICE: 02/15/2019 SUBJECTIVE: Mr. Carroll is in no distress. He is ambulating around the room. OBJECTIVE: VITAL SIGNS: Blood pressure 139/67, heart rate is 80. He is on room air now. LUNGS: Clear. HEART: Unchanged. ABDOMEN: Unchanged. EXTREMITIES: Unchanged. IMPRESSION: 1. Status post coronary artery bypass grafting. 2. End-stage renal disease, on peritoneal dialysis. It is anticipated that he may be discharged within 24 hours. We will sign off. Job ID: [id number]
--- NOTE | 2019-02-15 17:30 | PRG ---
DATE OF SERVICE: 02/15/2019 SUBJECTIVE: Mr. Carroll is doing well. No current complaints. OBJECTIVE: VITAL SIGNS: Blood pressure 139/69, pulse 66, temperature afebrile. LUNGS: Clear to auscultation. HEART: Regular rate and rhythm. ABDOMEN: Soft, nontender, nondistended. EXTREMITIES: No edema. PERTINENT LABORATORY DATA: Hemoglobin 9.3, creatinine 6.28. IMPRESSION: 1. Coronary artery disease. 2. Status post bypass surgery. 3. End-stage renal disease. 4. Hypertension. RECOMMENDATIONS: 1. Mr. Carroll is doing well. Chest tube has been removed. He has continued to use incentive spirometry and participating in physical therapy. 2. Recommend continuing aspirin and carvedilol. 3. Continue Lipitor. Job ID: [id number]
[2019-02-15] MEDS: Atorvastatin Calcium 40 MG TAB PO SCH (20:09)
[2019-02-15] MEDS: FLUoxetine HCl 20 MG CAP PO SCH (20:11)
[2019-02-16] MEDS: hydrALAZINE 25 MG TAB PO SCH (08:51)
[2019-02-16] MEDS: Carvedilol 6.25 MG TAB PO SCH (08:52)
[2019-02-16] MEDS: Aspirin 325 mg Enteric Coated Tablet PO SCH (08:52)
[2019-02-16] MEDS: NIFEdipine XL 60 MG TAB PO SCH (08:53)
[2019-02-16] MEDS: Polyethylene Glycol 3350 17 GM Packet PO SCH (08:53)
[2019-02-16 10:28] VITALS: BP 147/74; TEMP 98.4
--- NOTE | 2019-02-16 11:38 | PRG ---
DATE OF SERVICE: 02/16/2019 SUBJECTIVE: Patient was seen and examined at bedside and overnight events noted. Patient denies any shortness of breath or chest pain or palpitation. No history of nausea or vomiting or diarrhea or fever or chills or cramps. OBJECTIVE: GENERAL: This is a well-built male, in no apparent distress. VITAL SIGNS: Temperature 98.9. Heart rate 68. Respiratory rate 20. Blood pressure 144/63. HEENT: Atraumatic, normocephalic. Oral mucosa is moist NECK: Supple. CARDIOVASCULAR: S1, S2 heard. Rate and rhythm regular. RESPIRATORY: Clear to auscultation. GASTROINTESTINAL: Abdomen is soft. MUSCULOSKELETAL: No tenderness. No edema. DERMATOLOGIC: No skin rash. NEUROLOGIC: Alert and awake and oriented X3. No focal neurologic deficits. Moving all the extremities. PSYCHIATRIC: Mood and affect normal. LABORATORY DATA: No labs done today. ASSESSMENT AND PLAN: 1. End-stage renal disease, on peritoneal dialysis, tolerating well. . Will also have followup as outpatient with . 2. Hypertension. 3. Edema. 4. Anemia. Continue Epogen. Overall, tolerating well . We will add heparin and also will be doing peritonitis protocol and give empiric antibiotics as outpatient. The patient will be going to dialysis clinic today. Job ID: [id number]
--- NOTE | 2019-02-17 04:40 | DIS ---
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 On 02/12, he underwent bypass grafting to the LAD, diagonal, and right coronary artery, receiving 2 units of packed red cells. Postoperative course was uneventful with no arrhythmias. He was ambulating without difficulty and underwent peritoneal dialysis nightly. He will be discharged today to resume his home medicines with the exception of Procardia XL 60 once a day instead of twice a day. Discharge and followup instructions have been given and he will follow up with me in 2 to 3 weeks. Job ID: [id number]
--- NOTE | 2019-02-18 16:17 | EKG ---
Test Reason : S/P CABG Blood Pressure : / mmHG Vent. Rate : 063 BPM Atrial Rate : 063 BPM P-R Int : 140 ms QRS Dur : 104 ms QT Int : 424 ms P-R-T Axes : 017 056 076 degrees QTc Int : 433 ms Normal sinus rhythm Minimal voltage criteria for LVH, may be normal variant Borderline ECG When compared with ECG of 12-FEB-2019 12:01, Sinus rhythm has replaced Junctional rhythm Confirmed by DR. Shabnam GIORDANO ([id number]) on 02/18/2019 4:17:25 PM Referred By: TAMMIE Confirmed By:DR. Shabnam GIORDANO
== END 2019-02-16 09:50 | disposition home or self-care (01) | DRG 235 ==
LOC: SURG A 02-12 05:58 → CCU 02-12 11:41
PROVIDERS: ADMIT Thoracic Surgery (Cardiothoracic Vascular Surgery); ATTEND Thoracic Surgery (Cardiothoracic Vascular Surgery)
PROC: 02100Z9 Bypass Coronary Artery, One Artery from Left Internal Mammary, Open Approach (ICD-10-PCS; principal; 2019-02-12)
PROC: 021109W Bypass Coronary Artery, Two Arteries from Aorta with Autologous Venous Tissue, Open Approach (ICD-10-PCS; 2019-02-12)
PROC: 06BQ4ZZ Excision of Left Saphenous Vein, Percutaneous Endoscopic Approach (ICD-10-PCS; 2019-02-12)
PROC: 5A1221Z Performance of Cardiac Output, Continuous (ICD-10-PCS; 2019-02-12)
DX: I25.10 Atherosclerotic heart disease of native coronary artery without angina pectoris (principal); N18.6 End stage renal disease; I12.0 Hypertensive chronic kidney disease with stage 5 chronic kidney disease or end stage renal disease; E78.5 Hyperlipidemia, unspecified; K21.9 Gastro-esophageal reflux disease without esophagitis; Z96.652 Presence of left artificial knee joint; D64.9 Anemia, unspecified; G58.8 Other specified mononeuropathies; R60.9 Edema, unspecified; Z88.2 Allergy status to sulfonamides; Z99.2 Dependence on renal dialysis
CPT/HCPCS: 36416; 36430; 71045; 80048; 82805; 85025; 85027; 85610; 85730; 86850; 86900; 86901; 93005; 93010; 93798; 94002; 94003; 94150; J0360; J0690; J1265; J1642; J1644; J1815; J2001; J2405; J2440; J2704; J2720; J3010; J3370; J3475; J3480; J3490; P9016; P9045; Q5105; S0017; S0028

== ENCOUNTER 2021-12-04 13:45 | Outpatient (CLI) | payer MEDICARE | END 2021-12-04 13:46 | disposition home or self-care (01) | LOC: BICRAD 13:45 | PROVIDERS: ATTEND Family Medicine | DX: R05.9 Cough, unspecified (principal); J98.11 Atelectasis | CPT/HCPCS: 71046 ==

== ENCOUNTER 2022-02-25 09:22 | Inpatient (IN) | payer MEDICARE ==
[2022-02-25 11:51] LABS: Hemoglobin 10.8 g/dL (14.0-18.0); Mean Corpuscular HGB CONC 32.3 g/dL (32.0-36.0); Mean Corpuscular Hemoglobin 33.8 pg (27.0-31.0); Mean Platelet Volume 8.4 fL (7.4-10.4); Platelet Count 217 10x3/uL (130-400); RBC Distribution Width 15.4 % (11.5-14.5); Red Blood Cell (RBC) Count 3.19 mill/uL (4.70-6.10); White Blood Cell (WBC) Count 12.1 10x3/uL (4.8-10.8)
[2022-02-25 12:05] LABS: #Eosinphils 0.1 thou/uL (0.0-0.7); #Lymphocytes 0.8 thou/uL (1.20-3.40); #Monocytes 1.2 thou/uL (0.11-0.59); %Basophils 0.3 % (0.0-1.0); %Eosinophils 0.5 % (0.0-10.0); %Lymphocytes 6.8 % (21.0-51.0); %Monocytes 9.6 % (0.0-10.0); %Neutrophils 82.9 % (42.0-75.0)
[2022-02-25 12:07] LABS: Bacteria/HPF None Seen HPF (None Seen); Bilirubin Negative (Negative); Blood, Urine Negative (Negative); Clarity Clear (Clear); Glucose, Urine (Dipstick) 200 mg/dL (Negative); Ketone, Urine Negative (Negative); Leukocyte Negative Leu/uL (Negative); Nitrite Negative (Negative); Protein, Urine (Dipstick) 70 mg/dL (Neg-Trace); RBC/HPF 0-3 HPF (0-3); Specific Gravity, Urine 1.012 (1.002-1.036); Squamous Epithelial 0-3 HPF (0-3); Urobilinogen Normal mg/dL (Less than 2); WBC/HPF 0-3 HPF (0-3)
[2022-02-25 12:10] LABS: Prothrombin Time 13.3 sec (12.0-14.7)
[2022-02-25 12:11] LABS: ALT (SGPT) 20 U/L (8-55); AST (SGOT) 25 U/L (5-34); Albumin 3.5 g/dL (3.4-4.8); Alkaline Phosphatase 92 U/L (40-110); Anion Gap 16 mmol/L (10-20); BUN (Urea Nitrogen) 64 mg/dL (8.4-25.7); Bilirubin, Total 0.4 mg/dL (0.2-1.2); Calc. Creatinine Clearance 0 mL/min (70-130); Calcium 9.1 mg/dL (7.8-10.44); Carbon Dioxide 22 mmol/L (23-31); Chloride 103 mmol/L (98-107); Estimated GFR 7; Globulin 2.4 g/dL (2.4-3.5); Glucose 95 mg/dL (83-110); Lipase 41 U/L (8-78); Potassium 4.2 mmol/L (3.5-5.1); Protein, Total 5.9 g/dL (5.8-8.1); Sodium 137 mmol/L (136-145)
[2022-02-25 12:16] LABS: MDiff Complete? YES; Macrocytosis SLIGHT = 6-15 cells (100X) (0-5/hpf); Platelet Morphology Comment Appears Adequate
[2022-02-25 12:33] LABS: CKMB 2.4 ng/mL (0-6.6)
[2022-02-25] MEDS ORDERED: Aspirin Chewable 81 MG TAB ONE (13:15)
[2022-02-25] MEDS ORDERED: Amlodipine 5 MG TAB PO SCH (13:45)
[2022-02-25 14:00] LABS: Hemoglobin A1c 3.9 % (4.0-6.0)
[2022-02-25] MEDS ORDERED: hydrALAZINE 25 MG TAB PO SCH (14:00)
[2022-02-25 15:00] LABS: Cardiac Risk 2.8 (Less than 4.5); Cholesterol 127 mg/dl (< 200 Desired); HDL Cholesterol 45 mg/dL (>60 Neg Risk); LDL Cholesterol, Calculated 69 mg/dL; Triglycerides 64 mg/dL (Less than 150)
[2022-02-25 15:32] LABS: Troponin I 0.033 ng/mL (< 0.028)
[2022-02-25 16:45] VITALS: BMI 26.9
[2022-02-25 18:02] LABS: Troponin I 0.025 ng/mL (< 0.028)
[2022-02-25] MEDS: Atorvastatin Calcium 40 MG TAB PO SCH (20:39)
[2022-02-25] MEDS: Ferrous Sulfate 325 MG TAB PO SCH (20:40)
[2022-02-25] MEDS: FLUoxetine HCl 20 MG CAP PO SCH (20:40)
[2022-02-25] MEDS: hydrALAZINE 25 MG TAB PO SCH (20:40)
[2022-02-25] MEDS ORDERED: valACYclovir 500 MG TAB PO SCH (21:00)
[2022-02-26] MEDS: Levothyroxine Sodium 50 MCG TAB PO SCH (06:18)
[2022-02-26 06:46] LABS: ALT (SGPT) 26 U/L (8-55); AST (SGOT) 34 U/L (5-34); Albumin 2.9 g/dL (3.4-4.8); Alkaline Phosphatase 78 U/L (40-110); Anion Gap 16 mmol/L (10-20); BUN (Urea Nitrogen) 58 mg/dL (8.4-25.7); Bilirubin, Total 0.4 mg/dL (0.2-1.2); Calc. Creatinine Clearance 9 mL/min (70-130); Calcium 8.4 mg/dL (7.8-10.44); Carbon Dioxide 17 mmol/L (23-31); Chloride 104 mmol/L (98-107); Estimated GFR 7; Globulin 2.6 g/dL (2.4-3.5); Glucose 119 mg/dL (83-110); Potassium 3.8 mmol/L (3.5-5.1); Protein, Total 5.5 g/dL (5.8-8.1); Sodium 133 mmol/L (136-145)
[2022-02-26 06:54] LABS: #Eosinphils 0.2 thou/uL (0.0-0.7); #Lymphocytes 0.8 thou/uL (1.20-3.40); #Monocytes 1.1 thou/uL (0.11-0.59); #Neutrophils 7.1 thou/uL (1.40-6.50); %Basophils 0.5 % (0.0-1.0); %Eosinophils 2.5 % (0.0-10.0); %Lymphocytes 9.1 % (21.0-51.0); %Monocytes 11.4 % (0.0-10.0); %Neutrophils 76.5 % (42.0-75.0); Hemoglobin 8.6 g/dL (14.0-18.0); Mean Corpuscular HGB CONC 30.7 g/dL (32.0-36.0); Mean Platelet Volume 8.2 fL (7.4-10.4); Platelet Count 246 10x3/uL (130-400); RBC Distribution Width 15.7 % (11.5-14.5); Red Blood Cell (RBC) Count 2.53 mill/uL (4.70-6.10); White Blood Cell (WBC) Count 9.3 10x3/uL (4.8-10.8)
[2022-02-26] MEDS ORDERED: Amlodipine 5 MG TAB PO SCH (09:00)
[2022-02-26] MEDS ORDERED: Aspirin 81 mg Enteric Coated Tablet PO SCH (09:00)
[2022-02-26] MEDS: Potassium Chloride 20 MEQ TAB PO SCH (10:14)
[2022-02-26] MEDS: Aspirin Chewable 81 MG TAB PO SCH (10:14)
[2022-02-26] MEDS: hydrALAZINE 25 MG TAB PO SCH ×2 (10:14→21:49)
[2022-02-26] MEDS: Calcitriol 0.25 MCG CAP PO SCH (10:14)
[2022-02-26] MEDS: Furosemide 40 MG TAB PO SCH (10:14)
[2022-02-26 17:36] LABS: CSF Source CSF; Clarity Clear (Clear); Tube # 4
[2022-02-26 17:49] LABS: CSF, Glucose 63 mg/dl (40-70); CSF, Protein 72 mg/dL (15-40)
[2022-02-26 18:12] LABS: Hemoglobin 9.7 g/dL (14.0-18.0)
[2022-02-26 18:56] LABS: Hep B Core Total Ab Non-Reactive (NonReactive); Hep B Core Total Index 0.08 S/CO (0-0.79)
[2022-02-26 18:57] LABS: HBSAg Index 0.23 S/CO (0-0.99); Hep B Surf Ag Non-Reactive S/CO (NonReactive); Hep C IgG Ab Non-Reactive (NonReactive)
[2022-02-26] MEDS: Ferrous Sulfate 325 MG TAB PO SCH (21:49)
[2022-02-26] MEDS: FLUoxetine HCl 20 MG CAP PO SCH (21:49)
[2022-02-26] MEDS: Atorvastatin Calcium 40 MG TAB PO SCH (21:49)
[2022-02-27 01:47] LABS: HBSAB Concentration 10.58 mIU/mL
[2022-02-27 01:48] LABS: Hep B Surf AB Indeterminate (NonReactive)
[2022-02-27 05:52] LABS: #Basophils 0.1 thou/uL (0.0-0.2); #Eosinphils 0.3 thou/uL (0.0-0.7); #Lymphocytes 0.8 thou/uL (1.20-3.40); #Neutrophils 7.2 thou/uL (1.40-6.50); %Basophils 0.6 % (0.0-1.0); %Eosinophils 2.7 % (0.0-10.0); %Monocytes 10.3 % (0.0-10.0); %Neutrophils 77.4 % (42.0-75.0); Hemoglobin 9.7 g/dL (14.0-18.0); Mean Corpuscular Hemoglobin 33.6 pg (27.0-31.0); Mean Platelet Volume 7.9 fL (7.4-10.4); Platelet Count 256 10x3/uL (130-400); RBC Distribution Width 15.7 % (11.5-14.5); Red Blood Cell (RBC) Count 2.88 mill/uL (4.70-6.10); White Blood Cell (WBC) Count 9.3 10x3/uL (4.8-10.8)
[2022-02-27 06:06] LABS: ALT (SGPT) 29 U/L (8-55); AST (SGOT) 27 U/L (5-34); Albumin 2.8 g/dL (3.4-4.8); Alkaline Phosphatase 73 U/L (40-110); Anion Gap 14 mmol/L (10-20); BUN (Urea Nitrogen) 49 mg/dL (8.4-25.7); Bilirubin, Total 0.4 mg/dL (0.2-1.2); Calc. Creatinine Clearance 10 mL/min (70-130); Calcium 8.7 mg/dL (7.8-10.44); Carbon Dioxide 22 mmol/L (23-31); Chloride 105 mmol/L (98-107); Estimated GFR 7; Globulin 2.4 g/dL (2.4-3.5); Glucose 114 mg/dL (83-110); Potassium 3.6 mmol/L (3.5-5.1); Protein, Total 5.2 g/dL (5.8-8.1); Sodium 137 mmol/L (136-145)
[2022-02-27 06:22] LABS: HBSAg Index 0.26 S/CO (0-0.99); Hep B Surf Ag Non-Reactive S/CO (NonReactive)
[2022-02-27 06:28] LABS: HBSAB Concentration 8.66 mIU/mL; Hep B Surf AB Indeterminate (NonReactive)
[2022-02-27] MEDS: Levothyroxine Sodium 50 MCG TAB PO SCH (06:47)
[2022-02-27] MEDS ORDERED: Amlodipine 5 MG TAB PO SCH (09:15)
[2022-02-27] MEDS: Aspirin Chewable 81 MG TAB PO SCH (10:14)
[2022-02-27] MEDS: hydrALAZINE 25 MG TAB PO SCH ×2 (10:14→22:37)
[2022-02-27] MEDS: Calcitriol 0.25 MCG CAP PO SCH (10:14)
[2022-02-27] MEDS: Potassium Chloride 20 MEQ TAB PO SCH (10:14)
[2022-02-27] MEDS: Furosemide 40 MG TAB PO SCH (10:16)
[2022-02-27] MEDS: Amlodipine 10 MG TAB PO SCH (10:16)
[2022-02-27] MEDS ORDERED: valACYclovir 500 MG TAB PO SCH (21:00)
[2022-02-27] MEDS: Atorvastatin Calcium 40 MG TAB PO SCH (22:37)
[2022-02-27] MEDS: Ferrous Sulfate 325 MG TAB PO SCH (22:37)
[2022-02-27] MEDS: FLUoxetine HCl 20 MG CAP PO SCH (22:38)
[2022-02-28] MEDS: Levothyroxine Sodium 50 MCG TAB PO SCH (06:12)
[2022-02-28 06:27] LABS: #Basophils 0.1 thou/uL (0.0-0.2); #Eosinphils 0.4 thou/uL (0.0-0.7); #Lymphocytes 1.2 thou/uL (1.20-3.40); #Monocytes 1.1 thou/uL (0.11-0.59); #Neutrophils 6.4 thou/uL (1.40-6.50); %Basophils 0.7 % (0.0-1.0); %Monocytes 11.6 % (0.0-10.0); %Neutrophils 70.8 % (42.0-75.0); Hemoglobin 10.2 g/dL (14.0-18.0); Mean Corpuscular HGB CONC 31.6 g/dL (32.0-36.0); Mean Corpuscular Hemoglobin 33.4 pg (27.0-31.0); Mean Platelet Volume 7.6 fL (7.4-10.4); Platelet Count 292 10x3/uL (130-400); Red Blood Cell (RBC) Count 3.04 mill/uL (4.70-6.10); White Blood Cell (WBC) Count 9.1 10x3/uL (4.8-10.8)
[2022-02-28 06:47] LABS: ALT (SGPT) 31 U/L (8-55); AST (SGOT) 27 U/L (5-34); Albumin 2.9 g/dL (3.4-4.8); Alkaline Phosphatase 75 U/L (40-110); Anion Gap 13 mmol/L (10-20); BUN (Urea Nitrogen) 48 mg/dL (8.4-25.7); Bilirubin, Total 0.4 mg/dL (0.2-1.2); Calc. Creatinine Clearance 10 mL/min (70-130); Calcium 8.6 mg/dL (7.8-10.44); Carbon Dioxide 23 mmol/L (23-31); Chloride 105 mmol/L (98-107); Estimated GFR 8; Globulin 2.5 g/dL (2.4-3.5); Glucose 95 mg/dL (83-110); Potassium 3.9 mmol/L (3.5-5.1); Protein, Total 5.4 g/dL (5.8-8.1); Sodium 137 mmol/L (136-145)
[2022-02-28] MEDS: Aspirin Chewable 81 MG TAB PO SCH (08:57)
[2022-02-28] MEDS: Calcitriol 0.25 MCG CAP PO SCH (08:57)
[2022-02-28] MEDS: Furosemide 40 MG TAB PO SCH (08:57)
[2022-02-28] MEDS: hydrALAZINE 25 MG TAB PO SCH (08:57)
[2022-02-28] MEDS: Potassium Chloride 20 MEQ TAB PO SCH (08:57)
[2022-02-28] MEDS: Amlodipine 10 MG TAB PO SCH (08:58)
[2022-02-28 12:03] VITALS: BP 140/75; TEMP 98.9
== END 2022-02-28 14:07 | disposition home or self-care (01) | DRG 91 ==
LOC: ERS 09:22 → NEURO 13:29 → OBSVTOIN 02-26 15:44
PROVIDERS: ADMIT Student in an Organized Health Care Education/Training Program; ATTEND Family Medicine
PROC: 3E1M39Z Irrigation of Peritoneal Cavity using Dialysate, Percutaneous Approach (ICD-10-PCS; 2022-02-25)
PROC: 009U3ZX Drainage of Spinal Canal, Percutaneous Approach, Diagnostic (ICD-10-PCS; principal; 2022-02-26)
PROC: B01B1ZZ Fluoroscopy of Spinal Cord using Low Osmolar Contrast (ICD-10-PCS; 2022-02-26)
DX: G92.8 Other toxic encephalopathy (principal); N18.6 End stage renal disease; I12.0 Hypertensive chronic kidney disease with stage 5 chronic kidney disease or end stage renal disease; R47.01 Aphasia; E87.1 Hypo-osmolality and hyponatremia; T40.2X5A Adverse effect of other opioids, initial encounter; Z20.822 Contact with and (suspected) exposure to COVID-19; I25.10 Atherosclerotic heart disease of native coronary artery without angina pectoris; E03.9 Hypothyroidism, unspecified; B02.9 Zoster without complications; R77.8 Other specified abnormalities of plasma proteins; D63.1 Anemia in chronic kidney disease; E88.09 Other disorders of plasma-protein metabolism, not elsewhere classified; Z28.21 Immunization not carried out because of patient refusal; Z99.2 Dependence on renal dialysis; Z95.1 Presence of aortocoronary bypass graft; Z88.2 Allergy status to sulfonamides; Z79.899 Other long term (current) drug therapy; Z79.82 Long term (current) use of aspirin; Z79.890 Hormone replacement therapy; Z90.49 Acquired absence of other specified parts of digestive tract; Z90.89 Acquired absence of other organs; Z98.890 Other specified postprocedural states; Z87.891 Personal history of nicotine dependence
CPT/HCPCS: 36415; 62270; 70450; 70551; 80053; 80061; 81003; 81015; 82553; 82945; 83036; 83690; 83735; 84100; 84145; 84157; 84443; 84484; 85025; 85610; 85652; 85730; 86140; 86704; 86706; 87070; 87205; 87340; 87529; 87798; 89051; 93005; 93306; 94760; 95712; 95819; 95957; G0378; J0133; J3490; U0003; U0005

== ENCOUNTER 2023-02-18 13:35 | Outpatient (CLI) | payer MEDICARE ==
[2023-02-18] MEDS ORDERED: Iopamidol 370 76% 100 ML VIAL ONE (13:51)
== END 2023-02-18 13:36 | disposition home or self-care (01) ==
LOC: CT 13:35
PROVIDERS: ATTEND Thoracic Surgery (Cardiothoracic Vascular Surgery)
DX: I65.23 Occlusion and stenosis of bilateral carotid arteries (principal); I65.02 Occlusion and stenosis of left vertebral artery; J90 Pleural effusion, not elsewhere classified; J98.11 Atelectasis; J34.89 Other specified disorders of nose and nasal sinuses
CPT/HCPCS: 70498; Q9967

== ENCOUNTER 2023-03-10 08:00 | Inpatient (IN) | payer MEDICARE ==
[2023-03-11] MEDS ORDERED: CEFAZOLIN 2 GM VIAL ONE ×2 (06:22→13:23)
[2023-03-11] MEDS ORDERED: Sodium Chloride 0.9% 100 ML ONE ×2 (06:22→13:24)
[2023-03-11] MEDS ORDERED: Lidocaine 1% MPF 2 ML VIAL ONE (06:22)
[2023-03-11] MEDS ORDERED: Heparin 5,000 UNITS/ML VIAL ONE (06:39)
[2023-03-11] MEDS ORDERED: Bupivacaine PF 0.5% 30 ML VIAL ONE (06:39)
[2023-03-11] MEDS ORDERED: EPINEPHrine 1 MG/ML VIAL ONE (06:39)
[2023-03-11] MEDS ORDERED: Rocuronium Bromide 10 MG/ML (10ML VIAL) ONE ×2 (06:56→08:04)
[2023-03-11] MEDS ORDERED: Lidocaine 2% PF 5 ML VIAL ONE (06:56)
[2023-03-11] MEDS ORDERED: fentaNYL PF 100 MCG/2 ML SYRINGE ONE (06:56)
[2023-03-11] MEDS ORDERED: PROPOFOL 20 ML ONE (06:56)
[2023-03-11] MEDS ORDERED: Lidocaine 1% PF 5 ML VIAL ONE ×2 (07:04→08:04)
[2023-03-11] MEDS ORDERED: Heparin 10,000 UNITS/ 10 ML VIAL ONE (07:55)
[2023-03-11] MEDS ORDERED: ePHEDrine Sulfate 50 MG/10 ML VIAL ONE ×2 (07:57→08:04)
[2023-03-11] MEDS ORDERED: PROPOFOL 200 MG/20 ML VIAL ONE (08:04)
[2023-03-11] MEDS ORDERED: Ondansetron PF 4 MG/2 ML Vial ONE (08:04)
[2023-03-11] MEDS ORDERED: Glycopyrrolate 0.2 MG/ML 5 ML SYRINGE ONE ×2 (08:04)
[2023-03-11] MEDS ORDERED: PHENYLEPHRINE-NS 100 MCG/ML 10 ML SYRINGE ONE (08:04)
[2023-03-11] MEDS ORDERED: NEOSTIGMINE 3 MG/3 ML SYR 3 MG/3 ML SYRINGE ONE ×2 (08:04)
[2023-03-11] MEDS ORDERED: Protamine Sulfate 50 MG/5 ML VIAL ONE (08:48)
[2023-03-11] MEDS ORDERED: Vasopressin 20 UNITS/ML VIAL ONE (08:49)
[2023-03-11] MEDS ORDERED: niCARdipine 25 MG in Sodium Chloride 0.9% 250 ML 250 ML IVPB PRN (09:49)
[2023-03-11] MEDS ORDERED: Ipratropium/Albuterol 3 ML NEB NEB PRN (09:49)
[2023-03-11] MEDS ORDERED: fentaNYL 50 mcg/mL 1 mL Vial SLOW IVP PRN (09:49)
[2023-03-11] MEDS ORDERED: traMADol HCl 50 MG TAB PO PRN (09:49)
[2023-03-11] MEDS ORDERED: Acetaminophen 325 MG TAB PO PRN (09:49)
[2023-03-11] MEDS ORDERED: NOREPINEPHRINE 8 MG/250 ML-D5W 250 ML IVPB PRN (09:49)
[2023-03-11] MEDS ORDERED: fentaNYL 50 mcg/mL 1 mL Vial ONE (13:13)
[2023-03-11] MEDS: CEFAZOLIN 2 GM in Sodium Chloride 0.9% 100 ML IVPB SCH ×2 (13:31→21:10)
[2023-03-11] MEDS ORDERED: Epoetin (ESRD) 10,000 UNITS/ML VIAL SC SCH (17:00)
[2023-03-11] MEDS ORDERED: EPOETIN ALFA-EPBX (ESRD) 2,000 UNITS/ML VIAL SC SCH (17:15)
[2023-03-11 19:49] VITALS: BMI 29.7
[2023-03-11] MEDS ORDERED: Atorvastatin Calcium 40 MG TAB PO SCH (21:00)
[2023-03-11] MEDS ORDERED: FLUoxetine HCl 20 MG CAP PO SCH (21:00)
[2023-03-11] MEDS: EPOETIN ALFA-EPBX (ESRD) 3,000 UNITS/ML VIAL SC SCH ×2 (21:05→22:21)
[2023-03-11] MEDS: Furosemide 40 MG TAB PO SCH (21:06)
[2023-03-12 00:08] LABS: Hep B Surf Ag Non-Reactive S/CO (NonReactive)
[2023-03-12 01:08] LABS: HBSAg Index 0.25 S/CO (0-0.99)
[2023-03-12 01:13] LABS: Hep B Surf AB Reactive (NonReactive)
[2023-03-12] MEDS: Ondansetron PF 4 MG/2 ML Vial IVP PRN ×2 (04:19→08:01)
[2023-03-12] MEDS: CEFAZOLIN 2 GM in Sodium Chloride 0.9% 100 ML IVPB SCH (05:08)
[2023-03-12] MEDS ORDERED: Levothyroxine Sodium 50 MCG TAB PO SCH (06:00)
[2023-03-12 07:19] VITALS: TEMP 98.5
[2023-03-12] MEDS: Furosemide 40 MG TAB PO SCH (08:01)
[2023-03-12] MEDS ORDERED: Aspirin Chewable 81 MG TAB PO SCH ×2 (09:00)
[2023-03-12] MEDS ORDERED: Atenolol 25 MG TAB PO SCH (09:00)
[2023-03-12] MEDS ORDERED: Cinacalcet HCl 30 MG TAB PO SCH (09:00)
[2023-03-12] MEDS ORDERED: Calcitriol 0.25 MCG CAP PO SCH (09:00)
== END 2023-03-12 11:10 | disposition home or self-care (01) | DRG 37 ==
LOC: SURG A 03-11 06:00 → CCU 03-11 19:15
PROVIDERS: ADMIT Thoracic Surgery (Cardiothoracic Vascular Surgery); ATTEND Thoracic Surgery (Cardiothoracic Vascular Surgery)
PROC: 03CL0ZZ Extirpation of Matter from Left Internal Carotid Artery, Open Approach (ICD-10-PCS; principal; 2023-03-11)
PROC: 03UL0KZ Supplement Left Internal Carotid Artery with Nonautologous Tissue Substitute, Open Approach (ICD-10-PCS; 2023-03-11)
PROC: 5A1D70Z Performance of Urinary Filtration, Intermittent, Less than 6 Hours Per Day (ICD-10-PCS; 2023-03-11)
PROC: 3E033XZ Introduction of Vasopressor into Peripheral Vein, Percutaneous Approach (ICD-10-PCS; 2023-03-11)
DX: I65.23 Occlusion and stenosis of bilateral carotid arteries (principal); N18.6 End stage renal disease; I12.0 Hypertensive chronic kidney disease with stage 5 chronic kidney disease or end stage renal disease; E78.00 Pure hypercholesterolemia, unspecified; I25.10 Atherosclerotic heart disease of native coronary artery without angina pectoris; E78.5 Hyperlipidemia, unspecified; I73.9 Peripheral vascular disease, unspecified; D63.1 Anemia in chronic kidney disease; Z98.890 Other specified postprocedural states; Z82.49 Family history of ischemic heart disease and other diseases of the circulatory system; Z79.899 Other long term (current) drug therapy; Z79.82 Long term (current) use of aspirin; Z99.2 Dependence on renal dialysis; Z95.1 Presence of aortocoronary bypass graft; Z90.49 Acquired absence of other specified parts of digestive tract
CPT/HCPCS: 36415; 86706; 87340; C1768; J0171; J1642; J1644; J2001; J2405; J2704; J2720; J3010; J3490; Q5105; S0020

== ENCOUNTER 2023-03-10 08:57 | Outpatient (CLI) | payer MEDICARE ==
[2023-03-10 10:26] LABS: Hematocrit 34.9 % (38.8-50.0); Hemoglobin 10.9 g/dL (13.5-17.5); Mean Corpuscular HGB CONC 31.2 g/dL (32.0-36.0); Mean Corpuscular Hemoglobin 32.4 pg (27.0-33.0); Mean Corpuscular Volume 103.9 fl (81.2-95.1); Mean Platelet Volume 11.3 fl (7.4-10.4); Platelet Count 202 10x3/uL (150-450); RBC Distribution Width 15.6 % (11.5-14.5); Red Blood Cell (RBC) Count 3.36 10x6/uL (4.32-5.72); White Blood Cell (WBC) Count 9.1 10x3/uL (3.5-10.5)
[2023-03-10 10:58] LABS: Anion Gap 19 mmol/L (10-20); BUN (Urea Nitrogen) 53 mg/dL (8.4-25.7); Calc. Creatinine Clearance 0 mL/min (70-130); Carbon Dioxide 26 mmol/L (23-31); Chloride 99 mmol/L (98-107); Estimated GFR 7; Glucose 71 mg/dL (83-110); Potassium 4.8 mmol/L (3.5-5.1); Sodium 139 mmol/L (136-145)
== END 2023-03-10 08:58 | disposition home or self-care (01) ==
LOC: LABBT 08:57
PROVIDERS: ATTEND Thoracic Surgery (Cardiothoracic Vascular Surgery)
DX: Z01.812 Encounter for preprocedural laboratory examination (principal); I65.22 Occlusion and stenosis of left carotid artery
CPT/HCPCS: 80048; 85027

== ENCOUNTER 2024-01-04 20:59 | Emergency (ER) | payer MEDICARE ==
[2024-01-04] MEDS ORDERED: Ondansetron ODT 4 MG TAB ONE (22:39)
[2024-01-05] MEDS ORDERED: Bacitracin 1 PK ONE (02:53)
[2024-01-05] MEDS ORDERED: Meclizine HCl 25 MG TAB ONE (03:09)
== END 2024-01-05 03:25 | disposition home or self-care (01) ==
LOC: ERS 20:59
DX: S06.0X0A Concussion without loss of consciousness, initial encounter (principal); R42 Dizziness and giddiness; R44.2 Other hallucinations; I10 Essential (primary) hypertension; Z87.891 Personal history of nicotine dependence; W01.10XA Fall on same level from slipping, tripping and stumbling with subsequent striking against unspecified object, initial encounter
CPT/HCPCS: 70450; 72125; Q0162

== ENCOUNTER 2024-01-07 18:17 | Inpatient (IN) | payer MEDICARE ==
[~2024-01-07 18:17] MED LIST: Iopamidol-370 76% 500 ML MDV (1 ML CHARGE) ONE
[2024-01-07 18:50] LABS: #Basophils 0.07 10x3/uL (0.0-0.2); %Basophils 0.5 % (0.0-1.0); %Lymphocytes 2.9 % (21.0-51.0); %Monocytes 6.3 % (0.0-10.0); %Neutrophils 88.5 % (42.0-75.0); Hematocrit 28.6 % (42.0-52.0); Hemoglobin 9.3 g/dL (14.0-18.0); Mean Corpuscular HGB CONC 32.5 g/dL (32.0-36.0); Mean Corpuscular Hemoglobin 32.5 pg (27.0-31.0); Mean Platelet Volume 9.9 fL (7.4-10.4); Platelet Count 365 10x3/uL (130-400); RBC Distribution Width 16.7 % (11.5-14.5); Red Blood Cell (RBC) Count 2.86 mill/uL (4.70-6.10)
[2024-01-07 19:08] LABS: ALT (SGPT) 15 U/L (8-55); AST (SGOT) 30 U/L (5-34); Albumin 2.5 g/dL (3.4-4.8); Alkaline Phosphatase 133 U/L (40-110); Anion Gap 15 mmol/L (10-20); BUN (Urea Nitrogen) 26 mg/dL (8.4-25.7); Bilirubin, Total 0.5 mg/dL (0.2-1.2); Calc. Creatinine Clearance 0 mL/min (70-130); Calcium 9.2 mg/dL (7.8-10.44); Carbon Dioxide 30 mmol/L (23-31); Chloride 95 mmol/L (98-107); Estimated GFR 25; Globulin 4.8 g/dL (2.4-3.5); Glucose 95 mg/dL (83-110); Potassium 4.1 mmol/L (3.5-5.1); Protein, Total 7.3 g/dL (5.8-8.1); Sodium 136 mmol/L (136-145)
[2024-01-07 19:18] LABS: Troponin I 0.015 ng/mL (< 0.028)
[2024-01-07 23:46] VITALS: BMI 26.2
[2024-01-08] MEDS: FLUoxetine HCl 20 MG CAP PO SCH ×2 (00:24→21:22)
[2024-01-08] MEDS: hydrALAZINE 25 MG TAB PO SCH ×2 (00:51→08:51)
[2024-01-08] MEDS: Levothyroxine Sodium 75 MCG TAB PO SCH (05:59)
[2024-01-08] MEDS ORDERED: Levothyroxine Sodium 50 MCG TAB PO SCH (06:00)
[2024-01-08 06:03] LABS: #Basophils 0.07 10x3/uL (0.0-0.2); %Basophils 0.6 % (0.0-1.0); %Eosinophils 2.2 % (0.0-10.0); %Lymphocytes 6.1 % (21.0-51.0); %Monocytes 7.7 % (0.0-10.0); %Neutrophils 82.8 % (42.0-75.0); Hematocrit 24.1 % (42.0-52.0); Mean Corpuscular HGB CONC 33.2 g/dL (32.0-36.0); Mean Corpuscular Hemoglobin 32.1 pg (27.0-31.0); Mean Corpuscular Volume 96.8 fL (78.0-98.0); Mean Platelet Volume 10.3 fL (7.4-10.4); Platelet Count 283 10x3/uL (130-400); RBC Distribution Width 17.2 % (11.5-14.5); Red Blood Cell (RBC) Count 2.49 mill/uL (4.70-6.10)
[2024-01-08 06:40] LABS: ALT (SGPT) 11 U/L (8-55); AST (SGOT) 23 U/L (5-34); Albumin 2.1 g/dL (3.4-4.8); Alkaline Phosphatase 111 U/L (40-110); Anion Gap 11 mmol/L (10-20); BUN (Urea Nitrogen) 33 mg/dL (8.4-25.7); Bilirubin, Total 0.3 mg/dL (0.2-1.2); Calc. Creatinine Clearance 20 mL/min (70-130); Calcium 8.5 mg/dL (7.8-10.44); Carbon Dioxide 31 mmol/L (23-31); Chloride 97 mmol/L (98-107); Estimated GFR 18; Globulin 3.8 g/dL (2.4-3.5); Glucose 78 mg/dL (83-110); Potassium 3.7 mmol/L (3.5-5.1); Protein, Total 5.9 g/dL (5.8-8.1); Sodium 135 mmol/L (136-145)
[2024-01-08] MEDS: Aspirin Chewable 81 MG TAB PO SCH (08:51)
[2024-01-08] MEDS: Furosemide 40 MG TAB PO SCH (08:51)
[2024-01-08] MEDS: Amlodipine 10 MG TAB PO SCH (08:51)
[2024-01-08 17:00] LABS: Fluid, pH - Pleural Fld Greater than 7.500 (7.60 - 7.66)
[2024-01-08 17:05] LABS: RBC Count-Automated (BF) 6582 /cu.mm; WBC/Nucleated-Auto (BF) 925 /cu.mm
[2024-01-08 17:13] LABS: Fluid, Triglycerides 14 mg/dL (Not Available); Pleural Fluid, Amylase Less than 30 U/L (Not Available); Pleural Fluid, Glucose 71 mg/dL; Pleural Fluid, LDH 138 U/L (Not Available); Pleural Fluid, Protein 2.3 g/dL
[2024-01-08 17:26] LABS: Body Fluid Source Thoracentesis Fluid
[2024-01-08 17:27] LABS: BF Color Pink; Clarity Cloudy/Turbid (Clear); Tube # 3
[2024-01-08 17:32] LABS: BF Segmented Neutrophils 4 %; Cell Count Non Hematic 11 %; Lymphocytes 85 %
[2024-01-08] MEDS: Ondansetron ODT 4 MG TAB PO PRN (19:30)
[2024-01-08] MEDS ORDERED: Heparin 25,000 units/D5W 500 ML IVPB SCH (21:00)
[2024-01-08] MEDS ORDERED: Heparin 10,000 UNITS/ 10 ML VIAL SLOW IVP SCH (21:00)
[2024-01-08 21:04] LABS: Hematocrit 24.9 % (42.0-52.0); Hemoglobin 8.1 g/dL (14.0-18.0); Platelet Count 274 10x3/uL (130-400)
[2024-01-08] MEDS: Atorvastatin Calcium 40 MG TAB PO SCH (21:13)
[2024-01-08] MEDS: Albuterol 2.5 MG (3 mL) NEB NEB SCH (23:29)
[2024-01-09 04:47] LABS: #Basophils 0.05 10x3/uL (0.0-0.2); %Basophils 0.5 % (0.0-1.0); %Eosinophils 2.5 % (0.0-10.0); %Lymphocytes 7.1 % (21.0-51.0); %Monocytes 10.4 % (0.0-10.0); %Neutrophils 78.9 % (42.0-75.0); Hematocrit 23.7 % (42.0-52.0); Hemoglobin 7.8 g/dL (14.0-18.0); Mean Corpuscular HGB CONC 32.9 g/dL (32.0-36.0); Mean Corpuscular Hemoglobin 31.7 pg (27.0-31.0); Mean Corpuscular Volume 96.3 fL (78.0-98.0); Mean Platelet Volume 9.9 fL (7.4-10.4); Platelet Count 271 10x3/uL (130-400); RBC Distribution Width 17.2 % (11.5-14.5); Red Blood Cell (RBC) Count 2.46 mill/uL (4.70-6.10)
[2024-01-09 05:10] LABS: ALT (SGPT) 12 U/L (8-55); AST (SGOT) 22 U/L (5-34); Alkaline Phosphatase 112 U/L (40-110); Anion Gap 14 mmol/L (10-20); BUN (Urea Nitrogen) 50 mg/dL (8.4-25.7); Bilirubin, Total 0.4 mg/dL (0.2-1.2); Calc. Creatinine Clearance 14 mL/min (70-130); Calcium 8.6 mg/dL (7.8-10.44); Carbon Dioxide 27 mmol/L (23-31); Chloride 95 mmol/L (98-107); Estimated GFR 12; Globulin 3.8 g/dL (2.4-3.5); Glucose 82 mg/dL (83-110); Potassium 3.9 mmol/L (3.5-5.1); Protein, Total 5.8 g/dL (5.8-8.1); Sodium 132 mmol/L (136-145)
[2024-01-09] MEDS ORDERED: Heparin 10,000 UNITS/ 10 ML VIAL ONE (10:29)
[2024-01-09 11:44] LABS: Hematocrit 26.1 % (42.0-52.0); Hemoglobin 8.3 g/dL (14.0-18.0)
[2024-01-09 12:04] LABS: Magnesium 2.1 mg/dL (1.6-2.6); Phosphorus 3.2 mg/dL (2.3-4.7)
[2024-01-09] MEDS: Albuterol 2.5 MG (3 mL) NEB ONE (19:41)
[2024-01-09] MEDS: Acetaminophen 325 MG TAB PO PRN (21:44)
[2024-01-10 04:46] LABS: #Basophils 0.05 10x3/uL (0.0-0.2); %Basophils 0.4 % (0.0-1.0); %Eosinophils 1.9 % (0.0-10.0); %Lymphocytes 7.6 % (21.0-51.0); %Monocytes 9.9 % (0.0-10.0); %Neutrophils 79.6 % (42.0-75.0); Hematocrit 24.5 % (42.0-52.0); Hemoglobin 8.2 g/dL (14.0-18.0); Mean Corpuscular HGB CONC 33.5 g/dL (32.0-36.0); Mean Corpuscular Hemoglobin 31.7 pg (27.0-31.0); Mean Corpuscular Volume 94.6 fL (78.0-98.0); Mean Platelet Volume 10.1 fL (7.4-10.4); Platelet Count 300 10x3/uL (130-400); RBC Distribution Width 16.8 % (11.5-14.5); Red Blood Cell (RBC) Count 2.59 mill/uL (4.70-6.10)
[2024-01-10 06:01] LABS: ALT (SGPT) 11 U/L (8-55); AST (SGOT) 24 U/L (5-34); Albumin 1.9 g/dL (3.4-4.8); Alkaline Phosphatase 133 U/L (40-110); Anion Gap 18 mmol/L (10-20); BUN (Urea Nitrogen) 68 mg/dL (8.4-25.7); Bilirubin, Total 0.4 mg/dL (0.2-1.2); Calc. Creatinine Clearance 10 mL/min (70-130); Calcium 8.7 mg/dL (7.8-10.44); Carbon Dioxide 26 mmol/L (23-31); Chloride 96 mmol/L (98-107); Estimated GFR 9; Globulin 3.9 g/dL (2.4-3.5); Glucose 70 mg/dL (83-110); Potassium 4.3 mmol/L (3.5-5.1); Protein, Total 5.8 g/dL (5.8-8.1); Sodium 136 mmol/L (136-145)
[2024-01-10] MEDS ORDERED: Heparin 10,000 UNITS/ 10 ML VIAL ONE (10:36)
[2024-01-10] MEDS ORDERED: Albumin 25% 25 GM (100 mL) BOT IVPB PRN (13:43)
[2024-01-10] MEDS: EPOETIN ALFA-EPBX (ESRD) 10,000 UNITS/ML VIAL IVP SCH (14:06)
[2024-01-10] MEDS: Heparin 5,000 UNITS/ML VIAL SC SCH (16:09)
[2024-01-11 01:12] LABS: Hematocrit 25.4 % (42.0-52.0); Hemoglobin 8.6 g/dL (14.0-18.0); Platelet Count 315 10x3/uL (130-400)
[2024-01-11 05:12] LABS: #Basophils 0.05 10x3/uL (0.0-0.2); %Basophils 0.5 % (0.0-1.0); %Eosinophils 1.8 % (0.0-10.0); %Lymphocytes 6.5 % (21.0-51.0); %Monocytes 12.1 % (0.0-10.0); %Neutrophils 78.1 % (42.0-75.0); Hematocrit 23.1 % (42.0-52.0); Hemoglobin 7.8 g/dL (14.0-18.0); Mean Corpuscular HGB CONC 33.8 g/dL (32.0-36.0); Mean Corpuscular Hemoglobin 32.1 pg (27.0-31.0); Mean Corpuscular Volume 95.1 fL (78.0-98.0); Mean Platelet Volume 10.2 fL (7.4-10.4); Platelet Count 287 10x3/uL (130-400); RBC Distribution Width 17.1 % (11.5-14.5); Red Blood Cell (RBC) Count 2.43 mill/uL (4.70-6.10)
[2024-01-11 05:24] LABS: ALT (SGPT) 12 U/L (8-55); AST (SGOT) 24 U/L (5-34); Albumin 2.4 g/dL (3.4-4.8); Alkaline Phosphatase 130 U/L (40-110); Anion Gap 12 mmol/L (10-20); BUN (Urea Nitrogen) 33 mg/dL (8.4-25.7); Bilirubin, Total 0.4 mg/dL (0.2-1.2); Calc. Creatinine Clearance 16 mL/min (70-130); Calcium 8.7 mg/dL (7.8-10.44); Carbon Dioxide 29 mmol/L (23-31); Chloride 102 mmol/L (98-107); Estimated GFR 15; Globulin 3.5 g/dL (2.4-3.5); Glucose 80 mg/dL (83-110); Potassium 3.9 mmol/L (3.5-5.1); Protein, Total 5.9 g/dL (5.8-8.1); Sodium 139 mmol/L (136-145)
[2024-01-11] MEDS ORDERED: Polyethylene Glycol 3350 17 GM Packet PO PRN (13:22)
[2024-01-11] MEDS: Bisacodyl 5 MG TAB PO PRN (14:25)
[2024-01-11] MEDS: Promethazine 25 MG TAB PO SCH (21:02)
[2024-01-12] MEDS: Sucralfate 1 GM/10 ML UDCUP PO SCH (01:25)
[2024-01-12] MEDS: Calcium Carbonate 500 MG ChewTAB PO SCH ×2 (06:08→23:02)
[2024-01-12 07:00] LABS: #Basophils 0.03 10x3/uL (0.0-0.2); #Eosinophils Less than 0.03 10x3/uL (0.0-0.7); %Basophils 0.3 % (0.0-1.0); %Eosinophils 0.1 % (0.0-10.0); %Monocytes 12.8 % (0.0-10.0); %Neutrophils 82.4 % (42.0-75.0); Hematocrit 28.5 % (42.0-52.0); Hemoglobin 9.5 g/dL (14.0-18.0); Mean Corpuscular HGB CONC 33.3 g/dL (32.0-36.0); Mean Corpuscular Volume 93.1 fL (78.0-98.0); Mean Platelet Volume 9.9 fL (7.4-10.4); Platelet Count 431 10x3/uL (130-400); RBC Distribution Width 17.1 % (11.5-14.5); Red Blood Cell (RBC) Count 3.06 mill/uL (4.70-6.10)
[2024-01-12 07:44] LABS: ALT (SGPT) 13 U/L (8-55); AST (SGOT) 23 U/L (5-34); Albumin 2.6 g/dL (3.4-4.8); Alkaline Phosphatase 131 U/L (40-110); Anion Gap 17 mmol/L (10-20); BUN (Urea Nitrogen) 50 mg/dL (8.4-25.7); Bilirubin, Total 0.4 mg/dL (0.2-1.2); Calc. Creatinine Clearance 10 mL/min (70-130); Calcium 9.8 mg/dL (7.8-10.44); Carbon Dioxide 35 mmol/L (23-31); Chloride 92 mmol/L (98-107); Estimated GFR 9; Globulin 4.2 g/dL (2.4-3.5); Glucose 103 mg/dL (83-110); Potassium 3.9 mmol/L (3.5-5.1); Protein, Total 6.8 g/dL (5.8-8.1); Sodium 140 mmol/L (136-145)
[2024-01-12] MEDS ORDERED: CEFAZOLIN 2 GM in Sodium Chloride 0.9% 100 ML IVPB SCH (09:00)
[2024-01-12] MEDS ORDERED: SUGAMMADEX SODIUM 200 MG/2 ML VIAL ONE (09:04)
[2024-01-12] MEDS ORDERED: PHENYLEPHRINE-NS 100 MCG/ML 10 ML SYRINGE ONE (09:04)
[2024-01-12] MEDS ORDERED: Midazolam HCl 2 mg/2 ml Vial ONE (09:04)
[2024-01-12] MEDS ORDERED: fentaNYL PF 100 MCG/2 ML SYRINGE ONE (09:04)
[2024-01-12] MEDS ORDERED: Lidocaine 2% PF 100 mg/5 ml Syringe ONE (09:04)
[2024-01-12] MEDS ORDERED: PROPOFOL 20 ML ONE (09:04)
[2024-01-12] MEDS ORDERED: Ketamine In 0.9 % NaCl 50 MG/5 ML SYRINGE ONE (09:04)
[2024-01-12] MEDS ORDERED: ePHEDrine Sulfate 50 MG/10 ML VIAL ONE (09:04)
[2024-01-12] MEDS ORDERED: Dexamethasone 20 MG/5 ML VIAL ONE (09:05)
[2024-01-12] MEDS ORDERED: Rocuronium Bromide 10 MG/ML (10ML VIAL) ONE (09:05)
[2024-01-12] MEDS ORDERED: Ondansetron PF 4 MG/2 ML Vial ONE (09:05)
[2024-01-12] MEDS ORDERED: Lidocaine 2% PF 5 ML VIAL ONE (09:05)
[2024-01-12] MEDS ORDERED: Norepinephrine 4 MG/4 ML VIAL ONE (09:08)
[2024-01-12] MEDS ORDERED: CEFAZOLIN 2 GM VIAL ONE (09:22)
[2024-01-12] MEDS ORDERED: EPINEPHrine 1 MG/ML VIAL ONE (10:15)
[2024-01-12] MEDS ORDERED: Heparin 10,000 UNITS/ 10 ML VIAL ONE (10:15)
[2024-01-12] MEDS ORDERED: Bupivacaine 0.25% HCL 30 ML VIAL ONE ×2 (10:15→10:44)
[2024-01-12] MEDS ORDERED: Albumin 5% 250 ML ONE (10:33)
[2024-01-12] MEDS ORDERED: Calcium Chloride 1 GM/10 ML Abboject SYRINGE ONE (10:54)
[2024-01-12] MEDS ORDERED: Sodium Chloride 0.9% 250 ML 250 ML ONE ×2 (12:04→13:18)
[2024-01-12] MEDS ORDERED: fentaNYL 50 mcg/mL 1 mL Vial ONE (12:57)
[2024-01-12] MEDS ORDERED: Mineral Oil ENEMA PR PRN (19:36)
[2024-01-12] MEDS ORDERED: Ondansetron PF 4 MG/2 ML Vial IVP PRN (19:36)
[2024-01-12] MEDS ORDERED: Milk Of Magnesia 30 ML UDCUP PO PRN (19:36)
[2024-01-12] MEDS ORDERED: Bisacodyl 10 MG SUPP PR PRN (19:36)
[2024-01-12] MEDS ORDERED: Ipratropium/Albuterol 3 ML NEB NEB PRN (19:36)
[2024-01-12] MEDS: Albumin 25% 25 GM (100 mL) BOT IVPB SCH (20:02)
[2024-01-12] MEDS: HYDROcodone/Acetaminophen 5/325 mg Tablet PO PRN (20:30)
[2024-01-12] MEDS: Gabapentin 100 MG CAP PO SCH (20:31)
[2024-01-12] MEDS: CEFAZOLIN 2 GM in Sodium Chloride 0.9% 100 ML IVPB SCH (20:33)
[2024-01-12 20:34] LABS: Anion Gap 20 mmol/L (10-20); BUN (Urea Nitrogen) 18 mg/dL (8.4-25.7); Calc. Creatinine Clearance 22 mL/min (70-130); Carbon Dioxide 26 mmol/L (23-31); Chloride 98 mmol/L (98-107); Estimated GFR 23; Glucose 109 mg/dL (83-110); Sodium 140 mmol/L (136-145)
[2024-01-12 20:59] LABS: Hematocrit 28.7 % (42.0-52.0); Hemoglobin 9.3 g/dL (14.0-18.0); Mean Corpuscular HGB CONC 32.4 g/dL (32.0-36.0); Mean Corpuscular Hemoglobin 31.7 pg (27.0-31.0); Mean Platelet Volume 9.3 fL (7.4-10.4); Platelet Count 371 10x3/uL (130-400); RBC Distribution Width 17.2 % (11.5-14.5); Red Blood Cell (RBC) Count 2.93 mill/uL (4.70-6.10)
[2024-01-12 21:25] LABS: Anisocytosis SLIGHT = 6-15 cells HPF (0-5); Band 27 % (5-11); Elliptocytes SLIGHT = 2-5 cells HPF (0-1); Hypochromia SLIGHT = 6-15 cells HPF (0-5); Large Platelets 6.4 % (0-5); Lymphocytes 8 % (21-51); Metamyelocyte 3 % (0-0); Monocytes 17 % (0-10); Neutrophil 45 % (42-75); Platelet Adequacy Comment Platelets Normal; Polychromasia MODERATE = 3-4 cells HPF (0-2); Target Cells SLIGHT = 2-5 cells HPF (0-1); Vacuoles SLIGHT
[2024-01-12] MEDS: Ketorolac Tromethamine 30 MG (1 mL) VIAL IVP SCH (23:36)
[2024-01-13] MEDS: Calcium Carbonate 500 MG ChewTAB PO SCH (03:47)
[2024-01-13] MEDS: Cyclobenzaprine 10 MG TAB PO PRN (03:47)
[2024-01-13 04:20] LABS: Hematocrit 27.7 % (42.0-52.0); Mean Corpuscular HGB CONC 32.5 g/dL (32.0-36.0); Mean Corpuscular Hemoglobin 31.5 pg (27.0-31.0); Mean Corpuscular Volume 96.9 fL (78.0-98.0); Mean Platelet Volume 9.5 fL (7.4-10.4); Platelet Count 391 10x3/uL (130-400); RBC Distribution Width 17.1 % (11.5-14.5); Red Blood Cell (RBC) Count 2.86 mill/uL (4.70-6.10)
[2024-01-13 04:25] LABS: ALT (SGPT) 7 U/L (8-55); AST (SGOT) 24 U/L (5-34); Alkaline Phosphatase 98 U/L (40-110); Anion Gap 16 mmol/L (10-20); BUN (Urea Nitrogen) 28 mg/dL (8.4-25.7); Bilirubin, Total 0.4 mg/dL (0.2-1.2); Calc. Creatinine Clearance 16 mL/min (70-130); Carbon Dioxide 32 mmol/L (23-31); Chloride 95 mmol/L (98-107); Estimated GFR 17; Globulin 3.8 g/dL (2.4-3.5); Glucose 126 mg/dL (83-110); Potassium 3.9 mmol/L (3.5-5.1); Protein, Total 6.8 g/dL (5.8-8.1); Sodium 139 mmol/L (136-145)
[2024-01-13 04:57] LABS: Anisocytosis SLIGHT = 6-15 cells HPF (0-5); Band 34 % (5-11); Eosinophils 1 % (0-10); Hypochromia SLIGHT = 6-15 cells HPF (0-5); Large Platelets 4.7 % (0-5); Lymphocytes 5 % (21-51); Metamyelocyte 3 % (0-0); Monocytes 12 % (0-10); Myelocyte 2 % (0-0); Neutrophil 44 % (42-75); Platelet Adequacy Comment Platelets Normal; Polychromasia MODERATE = 3-4 cells HPF (0-2); Target Cells SLIGHT = 2-5 cells HPF (0-1); Tear Drops SLIGHT = 2-5 cells HPF (0-1); Vacuoles SLIGHT
[2024-01-13] MEDS: HYDROcodone/Acetaminophen 5/325 mg Tablet PO PRN (05:25)
[2024-01-13] MEDS: Gabapentin 100 MG CAP PO SCH (08:31)
[2024-01-13] MEDS: Pantoprazole DR 40 MG TAB PO SCH (08:33)
[2024-01-13 09:27] VITALS: BMI 23.7
[2024-01-13] MEDS ORDERED: traMADol HCl 50 MG TAB PO PRN (17:14)
[2024-01-13 18:12] VITALS: BP 121/78
[2024-01-13] MEDS ORDERED: EPINEPHrine 1 MG/10 ML Abboject SYRINGE ONE (18:26)
[2024-01-13] MEDS ORDERED: Calcium Chloride 1 GM/10 ML Abboject SYRINGE ONE (18:26)
[2024-01-13] MEDS ORDERED: Sodium Bicarb 50 MEQ/50 ML Abboject 8.4% SYRINGE ONE (18:26)
[2024-01-13 18:58] LABS: Actual Bicarbonate (HCO3a) 20.1 mEq/L (22-28); Base Excess (BEa) -7.9 mEq/L (-2.0 to +3.0); CO2 Tension 53.2 mmHg (35.0-45.0); Calcium, Ionized (arterial) 1.38 mmol/L (1.12-1.30); Carboxyhemoglobin (COHb) 0.1 gm% (0.0-3.0); Hematocrit-ABG 29 % (42.0-52.0); Hemoglobin (Hb) 9.9 g/dL (14.0-18.0); O2 Tension (PaO2), arterial 344.9 mmHg (> 60.0); Potassium - ABG Lab 3.77 mmol/L (3.70-5.30)
[2024-01-13 19:02] LABS: Puncture Site Right Radial artery; pH, Arterial 7.196 (7.35-7.45)
[2024-01-13] MEDS ORDERED: Fentanyl BOLUS 250 ML IVPB PRN (19:30)
[2024-01-13] MEDS ORDERED: Fentanyl CADD 100 ML IV SCH (19:30)
[2024-01-13] MEDS ORDERED: Propofol BOLUS 1,000 MG/100 ML VIAL IV PRN (19:30)
[2024-01-13] MEDS ORDERED: DISCONTINUE PREVIOUS NARCOTIC PAIN MEDICATIONS AND BENZODIAZEPINES FS SCH (19:30)
[2024-01-13] MEDS ORDERED: Propofol 1,000 MG/100 ML VIAL IV PRN (19:30)
[2024-01-13 19:45] LABS: Actual Bicarbonate (HCO3a) 17.6 mEq/L (22-28); Base Excess (BEa) -8.1 mEq/L (-2.0 to +3.0); CO2 Tension 36.9 mmHg (35.0-45.0); Calcium, Ionized (arterial) 1.33 mmol/L (1.12-1.30); Carboxyhemoglobin (COHb) 0.3 gm% (0.0-3.0); Hematocrit-ABG 31 % (42.0-52.0); Hemoglobin (Hb) 10.7 g/dL (14.0-18.0); O2 Tension (PaO2), arterial 69.8 mmHg (> 60.0); Potassium - ABG Lab 4.14 mmol/L (3.70-5.30); pH, Arterial 7.297 (7.35-7.45)
[2024-01-13] MEDS ORDERED: EPINEPHrine 4 MG in Dextrose 5% in Water 250 ML IV SCH (19:45)
[2024-01-13 19:47] LABS: ALV-art Gradient 347.525 mmHg (0-20); Puncture Site LINE
[2024-01-13 20:26] LABS: Hematocrit 31.3 % (42.0-52.0); Hemoglobin 9.8 g/dL (14.0-18.0); Mean Corpuscular HGB CONC 31.3 g/dL (32.0-36.0); Mean Corpuscular Hemoglobin 31.2 pg (27.0-31.0); Mean Corpuscular Volume 99.7 fL (78.0-98.0); Mean Platelet Volume 9.8 fL (7.4-10.4); Platelet Count 357 10x3/uL (130-400); RBC Distribution Width 17.6 % (11.5-14.5); Red Blood Cell (RBC) Count 3.14 mill/uL (4.70-6.10)
[2024-01-13 20:36] LABS: ALT (SGPT) 52 U/L (8-55); AST (SGOT) 273 U/L (5-34); Albumin 2.5 g/dL (3.4-4.8); Alkaline Phosphatase 103 U/L (40-110); Anion Gap 31 mmol/L (10-20); BUN (Urea Nitrogen) 43 mg/dL (8.4-25.7); Bilirubin, Total 0.4 mg/dL (0.2-1.2); Calc. Creatinine Clearance 13 mL/min (70-130); Calcium 11.3 mg/dL (7.8-10.44); Carbon Dioxide 17 mmol/L (23-31); Chloride 94 mmol/L (98-107); Estimated GFR 13; Globulin 3.9 g/dL (2.4-3.5); Glucose 170 mg/dL (83-110); Magnesium 2.3 mg/dL (1.6-2.6); Potassium 4.1 mmol/L (3.5-5.1); Protein, Total 6.4 g/dL (5.8-8.1); Sodium 138 mmol/L (136-145)
[2024-01-13 20:41] LABS: Lactic Acid 13.37 mmol/L (0.5-2.2)
[2024-01-13 20:42] LABS: Troponin I 0.126 ng/mL (< 0.028)
[2024-01-13] MEDS: Piperacillin/Tazobactam 3.375 GM in Sodium Chloride 0.9% 100 ML IVPB SCH (20:50)
[2024-01-13] MEDS: Hydrocortisone Sod Succ/PF 100 mg/2 ml Vial IVP SCH (20:51)
[2024-01-13 20:59] LABS: Anisocytosis SLIGHT = 6-15 cells HPF (0-5); Band 39 % (5-11); Burr Cells SLIGHT = 2-5 cells HPF (0-1); Dohle Bodies SLIGHT; Eosinophils 2 % (0-10); Hypochromia SLIGHT = 6-15 cells HPF (0-5); Large Platelets 21.9 % (0-5); Lymphocytes 6 % (21-51); Metamyelocyte 16 % (0-0); Monocytes 3 % (0-10); Myelocyte 2 % (0-0); Neutrophil 32 % (42-75); Nucleated RBC (Manual Ct) 6 % (0); Platelet Adequacy Comment Platelets Normal; Poikilocytosis SLIGHT = 6-15 cells HPF (0-5); Polychromasia SLIGHT = 2-3 cells HPF (0-2); Promyelocytes 1 % (0-0); Reflex for Review?? YES; Target Cells SLIGHT = 2-5 cells HPF (0-1); Toxic Granulation SLIGHT; Vacuoles SLIGHT
[2024-01-13] MEDS: EPINEPHrine 1 MG/10 ML Abboject SYRINGE ONE (22:30)
[2024-01-13] MEDS: Propofol 1,000 MG/100 ML VIAL IV ONE (22:30)
[2024-01-13 22:35] LABS: Actual Bicarbonate (HCO3a) 22.3 mEq/L (22-28); Base Excess (BEa) -2.3 mEq/L (-2.0 to +3.0); CO2 Tension 37.3 mmHg (35.0-45.0); Calcium, Ionized (arterial) 1.29 mmol/L (1.12-1.30); Carboxyhemoglobin (COHb) 0.6 gm% (0.0-3.0); Hematocrit-ABG 32 % (42.0-52.0); Hemoglobin (Hb) 10.9 g/dL (14.0-18.0); O2 Tension (PaO2), arterial 97.3 mmHg (> 60.0); Potassium - ABG Lab 3.77 mmol/L (3.70-5.30); pH, Arterial 7.394 (7.35-7.45)
[2024-01-13 22:37] LABS: Puncture Site LINE
[2024-01-13 22:38] LABS: ALV-art Gradient 426.475 mmHg (0-20)
[2024-01-13] MEDS: Vasopressin In 0.9 % NaCl 40 UNIT in Premix 1 BAG IV SCH (22:40)
[2024-01-13] MEDS: NOREPINEPHRINE 8 MG/250 ML-D5W 250 ML IVPB SCH (22:40)
[2024-01-13] MEDS: Sodium Bicarbonate 150 MEQ in Sterile Water 1,000 ML IV SCH (22:45)
[2024-01-13] MEDS: NOREPINEPHRINE 8 MG/250 ML-D5W 250 ML ONE (22:48)
[2024-01-14] MEDS: Piperacillin/Tazobactam 3.375 GM in Sodium Chloride 0.9% 100 ML IVPB SCH ×2 (00:19→02:04)
[2024-01-14 00:30] LABS: Lactic Acid 11.52 mmol/L (0.5-2.2)
[2024-01-14] MEDS ORDERED: Lorazepam 2 MG/ML VIAL SLOW IVP PRN (02:09)
[2024-01-14] MEDS ORDERED: Morphine 2 MG/ML VIAL SLOW IVP PRN (02:15)
[2024-01-14] MEDS: Morphine 2 MG/ML VIAL SLOW IVP PRN (02:21)
[2024-01-14] MEDS: Lorazepam 2 MG/ML VIAL SLOW IVP PRN (02:22)
[2024-01-14 06:34] VITALS: TEMP 97.8
== END 2024-01-14 04:50 | disposition expired | DRG 163 ==
LOC: ERS 18:17 → 2NO 22:13 → CCU 01-13 18:37
PROVIDERS: ADMIT Student in an Organized Health Care Education/Training Program; ATTEND Student in an Organized Health Care Education/Training Program
PROC: 0W9B3ZZ Drainage of Left Pleural Cavity, Percutaneous Approach (ICD-10-PCS; 2024-01-08)
PROC: 0W9B30Z Drainage of Left Pleural Cavity with Drainage Device, Percutaneous Approach (ICD-10-PCS; 2024-01-08)
PROC: 5A09357 Assistance with Respiratory Ventilation, Less than 24 Consecutive Hours, Continuous Positive Airway Pressure (ICD-10-PCS; 2024-01-08)
PROC: 5A1D70Z Performance of Urinary Filtration, Intermittent, Less than 6 Hours Per Day (ICD-10-PCS; 2024-01-09)
PROC: 0BNL4ZZ Release Left Lung, Percutaneous Endoscopic Approach (ICD-10-PCS; principal; 2024-01-12)
PROC: 8E0W4CZ Robotic Assisted Procedure of Trunk Region, Percutaneous Endoscopic Approach (ICD-10-PCS; 2024-01-12)
PROC: 0W9B40Z Drainage of Left Pleural Cavity with Drainage Device, Percutaneous Endoscopic Approach (ICD-10-PCS; 2024-01-12)
PROC: 30233J1 Transfusion of Nonautologous Serum Albumin into Peripheral Vein, Percutaneous Approach (ICD-10-PCS; 2024-01-12)
PROC: 3E033XZ Introduction of Vasopressor into Peripheral Vein, Percutaneous Approach (ICD-10-PCS; 2024-01-12)
PROC: 3E033XZ Introduction of Vasopressor into Peripheral Vein, Percutaneous Approach (ICD-10-PCS; 2024-01-13)
PROC: 5A12012 Performance of Cardiac Output, Single, Manual (ICD-10-PCS; 2024-01-13)
PROC: 4A133R1 Monitoring of Arterial Saturation, Peripheral, Percutaneous Approach (ICD-10-PCS; 2024-01-13)
PROC: 02HV33Z Insertion of Infusion Device into Superior Vena Cava, Percutaneous Approach (ICD-10-PCS; 2024-01-13)
PROC: B548ZZA Ultrasonography of Superior Vena Cava, Guidance (ICD-10-PCS; 2024-01-13)
PROC: 3E03329 Introduction of Other Anti-infective into Peripheral Vein, Percutaneous Approach (ICD-10-PCS; 2024-01-13)
PROC: 3E03329 Introduction of Other Anti-infective into Peripheral Vein, Percutaneous Approach (ICD-10-PCS; 2024-01-13)
PROC: 0BH17EZ Insertion of Endotracheal Airway into Trachea, Via Natural or Artificial Opening (ICD-10-PCS; 2024-01-13)
PROC: 5A1935Z Respiratory Ventilation, Less than 24 Consecutive Hours (ICD-10-PCS; 2024-01-13)
PROC: 0BJ08ZZ Inspection of Tracheobronchial Tree, Via Natural or Artificial Opening Endoscopic (ICD-10-PCS; 2024-01-13)
PROC: 03HY32Z Insertion of Monitoring Device into Upper Artery, Percutaneous Approach (ICD-10-PCS; 2024-01-14)
PROC: 4A133B1 Monitoring of Arterial Pressure, Peripheral, Percutaneous Approach (ICD-10-PCS; 2024-01-14)
PROC: 4A133J1 Monitoring of Arterial Pulse, Peripheral, Percutaneous Approach (ICD-10-PCS; 2024-01-14)
DX: J94.2 Hemothorax (principal); I26.93 Single subsegmental thrombotic pulmonary embolism without acute cor pulmonale; J96.01 Acute respiratory failure with hypoxia; N18.6 End stage renal disease; K85.90 Acute pancreatitis without necrosis or infection, unspecified; I12.0 Hypertensive chronic kidney disease with stage 5 chronic kidney disease or end stage renal disease; J98.11 Atelectasis; E87.1 Hypo-osmolality and hyponatremia; Z51.5 Encounter for palliative care; Z66 Do not resuscitate; J90 Pleural effusion, not elsewhere classified; E78.5 Hyperlipidemia, unspecified; E03.9 Hypothyroidism, unspecified; I25.10 Atherosclerotic heart disease of native coronary artery without angina pectoris; D72.829 Elevated white blood cell count, unspecified; R53.81 Other malaise; D63.1 Anemia in chronic kidney disease; R07.81 Pleurodynia; R57.8 Other shock; Z96.652 Presence of left artificial knee joint; B02.9 Zoster without complications; E88.09 Other disorders of plasma-protein metabolism, not elsewhere classified; F32.A Depression, unspecified; I25.2 Old myocardial infarction; J94.1 Fibrothorax; I48.91 Unspecified atrial fibrillation; D53.9 Nutritional anemia, unspecified; Z99.2 Dependence on renal dialysis; Z95.1 Presence of aortocoronary bypass graft; Z88.2 Allergy status to sulfonamides; Z79.82 Long term (current) use of aspirin; Z79.899 Other long term (current) drug therapy; Z79.890 Hormone replacement therapy; Z90.49 Acquired absence of other specified parts of digestive tract; Z90.89 Acquired absence of other organs; Z98.890 Other specified postprocedural states; Z87.891 Personal history of nicotine dependence
CPT/HCPCS: 36415; 36416; 36600; 70450; 71045; 71275; 72125; 74018; 80053; 82150; 82805; 82945; 83605; 83615; 83735; 83880; 83986; 84100; 84157; 84443; 84478; 84484; 85025; 85060; 85730; 86850; 86900; 86901; 87040; 87116; 87206; 88112; 88305; 88341; 88342; 89051; 90935; 93005; 93010; 93306; 94002; 94003; 94640; A4217; A4314; C9250; G0257; J0171; J0665; J1100; J1644; J1720; J2001; J2060; J2250; J2272; J2405; J2543; J2704; J3010; J3490; J7050; J7611; P9045; Q0162; Q0169; Q5105; Q9967